=== PATIENT | male | born 1980 | race Caucasian/White ===

== ENCOUNTER 2025-02-03 09:04 | Inpatient (IN) | payer MEDICAID, OTHER, SELFPAY ==
[2025-02-03] VITALS (7 sets, daily range): BP systolic 124–156; BP diastolic 80–97; PULSE 76–86; RESP 15–18; TEMP 36.4–37.3; O2SAT 94–100; BMI 36.3; BMI 35.7
--- NOTE | ~2025-02-03 | CT_ITS ---
CLINICAL HISTORY: suprapubic pain CT abdomen and pelvis with IV contrast Comparison: None Findings: Lung bases show no active disease. No dependent layering pleural effusions. The heart is not enlarged. Coronary artery calcifications: None. Hepatic steatosis. Mild hepatomegaly. No focal hepatic lesions. Patent hepatic and portal veins. Physiologic distention of the gallbladder with no radiopaque gallstones. Homogeneous enhancement of the pancreas. No splenomegaly. Normal adrenal glands. Symmetrical renal excretion with no segmental or diffuse renal parenchymal disease or evidence of obstructive uropathy/hydroureteronephrosis. Renal cortical cysts on the left. Normal caliber abdominal aorta. Bowel demonstrates a nonobstructive pattern. No free air. Normal appendix and terminal ileum. Diverticular disease is seen in the sigmoid colon. Poorly defined sigmoid mass is noted on the right measuring 4 x 4.2 cm may represent a intramural hematoma or intramural abscess from possible acute diverticulitis. There is surrounding probably inflammatory changes/phlegmon extending up to the aortic bifurcation.Probable reactive adjacent mesenteric lymph nodes.Normal distention of the urinary bladder. No prostatomegaly. No vertebral body compression fractures or spondylolisthesis. No bony destructive lesions. Impression: 1. Intramural mass measuring 4.2 x 4.0 cm proximal sigmoid colon this may represent an inflammatory process from acute diverticulitis and may represent a intramural abscess rather than hematoma. Surrounding fat stranding may be inflammatory and represent phlegmon reaching up to the aortic bifurcation. 3.6 cm probable extraluminal fluid collection just inferior to the proximal sigmoid colon may represent a extraluminal component but appears contiguous with the intramural lesion. CT with oral Gastrografin study may be of further diagnostic value. No free air. 2. Hepatic steatosis. Renal cortical cysts. Normal distention of the urinary bladder. This document has been electronically signed by: Jean Paul Krause MD on 02/03/2025 12:34:16
--- NOTE | ~2025-02-03 | CT_ITS ---
EXAMINATION: CT ABDOMEN PELVIS WITH IV CONTRAST HISTORY: reassess sigmoid diverticular intramural phlegmon COMPARISON: Comparison is made with the prior examination dated 02/03/2025. TECHNIQUE: CT scan of the abdomen and pelvis was performed following administration of 85 mL Omnipaque 350 using standard departmental protocol. Coronal and sagittal reformatted images were generated and reviewed. Oral contrast material was not administered at the request of the referring physician. This CT exam was performed with one or more of the following dose reduction techniques: automated exposure control, adjustment of the mA and/or kV according to patient size, use of iterative reconstruction technique. DLP: 711 mGy-cm FINDINGS: LOWER CHEST: The visualized lung bases are clear. There is no pleural effusion. CARDIOVASCULATURE: The heart is normal in size. There is no pericardial effusion. LIVER: The liver is normal in size and contour, and is again seen to demonstrate diffusely decreased attenuation, consistent with steatosis. There is focal fatty sparing in the subcapsular region and adjacent to the gallbladder. No liver mass is identified. The hepatic and portal veins are patent. GALLBLADDER / BILE DUCTS: The gallbladder is unremarkable. There is no intra or extrahepatic biliary ductal dilatation. SPLEEN: The spleen is normal in size. No focal splenic lesion is identified. PANCREAS: The pancreas is unremarkable in appearance. ADRENAL GLANDS: Within normal limits. KIDNEYS/RETROPERITONEUM: No renal calculi are identified. There is no hydronephrosis. Again seen is a 3.4 cm cyst at the upper pole of the left kidney. A subcentimeter hypodensity at the lower pole of the right kidney may also represent a cyst but is too small to accurately characterize. LYMPH NODES: Again seen are multiple subcentimeter lymph nodes adjacent to the aortic bifurcation. VASCULATURE: The abdominal aorta is normal in caliber. MESENTERY/PERITONEUM: No free fluid. There is no free intraperitoneal gas. STOMACH: The stomach is collapsed, limiting evaluation. SMALL BOWEL: The small bowel is normal in caliber. COLON: Again seen is diverticulosis of the sigmoid colon. There is moderate wall thickening of the sigmoid colon. The previously seen inflammatory mass immediately adjacent to the sigmoid colon measures 4.8 x 3.9 x 6.3 cm (previously 3.9 x 3.6 x 6.6 cm). A well-defined enhancing rim is not identified. APPENDIX: Normal. URINARY BLADDER/PELVIC ORGANS: The urinary bladder is collapsed, limiting evaluation. The prostate is normal in size. BONES / SOFT TISSUES: No suspicious bony or soft tissue abnormalities. CT/CT abdomen pelvis w IV con IMPRESSION: 1. Again seen are findings suggestive of diverticulitis of the sigmoid colon. The previously described pericolonic inflammatory mass is slightly larger in size, and likely represents a developing abscess. 2. Hepatic steatosis. Electronically signed by: Henok Corcoran MD 02/05/2025 12:18 PM EDT
--- NOTE | 2025-02-03 09:17 | ED_ITS ---
HPI - General Adult General Chief complaint: Abdominal Pain Stated complaint: lower abd pain Time Seen by Provider: 02/03/25 09:17 Source: patient, RN notes reviewed and old records reviewed Mode of arrival: ambulatory Limitations: no limitations History of Present Illness ED Provider: Anali RESENDEZ narrative: Patient is a 44-year-old male presenting to the emergency department with complaint of suprapubic pain for the past 9 days. Reports symptoms began as generalized lower abdominal pain at onset which then became focused to suprapubic area. Reports associated night sweats, weight loss. Has been taking ibuprofen as well as [id number] azo with little change in symptoms. Denies any hematuria, back or flank pain. Denies nausea or vomiting. Denies any new sexual partners. Denies any abnormal penile discharge, rashes, scrotal pain or swelling. Denies constipation or diarrhea. MD complaint: Suprapubic pain Onset (ago): day(s) Related Data Allergies Allergy/AdvReac Type Severity Reaction Status Date / Time No Known Allergies Allergy Verified 02/03/25 09:17 Review of Systems 2 Review of Systems: As per HPI Yes all other systems are reviewed and are negative Constitutional: Constitutional: Reports as per HPI [facility] Social History Social History Smoked in Last 30 Days: No Use of substances other than those prescribed or required for medical reasons: Yes Substance Use Type: Marijuana Substance Use Frequency: Occasionally Advance Directives: No Advance Directives Information Provided: No Do you have a plan to hurt others: No Plan Physical Exam ED Vital Signs: Vital Signs - 24 hr 02/03/25 09:13 Temperature 99.2 F Pulse Rate 86 Respiratory Rate 18 Blood Pressure 124/97 H Pulse Oximetry 96 Oxygen Delivery Method Room Air BMI result Body Mass Index 36.3 Vital signs have been reviewed and appear to be correct. Blood pressure normal. Heart rate normal. Respiratory rate normal. Temperature normal. Oxygen saturation normal. Const General: cooperative, no acute distress and other (small beads to sweat to forehead) Orientation/consciousness: oriented to person, oriented to place, oriented to time and patient oriented x3 Limitations: no limitations HENMT Head: Yes normocephalic and Yes atraumatic Ears: external ears normal General nose exam: Normal external nose present Face and sinus: Yes face symmetric Mouth: oropharynx normal and moist mucous membranes Throat: Yes uvula midline Eyes Pupils: Equal, round and reactive pupils present Neck Neck: Yes normal visual inspection and Yes supple Resp Effort & Inspection: normal respiratory effort and able to speak in complete sentences Auscultation: clear to auscultation bilaterally Cardio Rate: regular rate Rhythm: regular rhythm Heart sounds: S1 normal heart sound present and S2 normal heart sound present GI Palpation (GI): Soft to palpation and Tenderness to palpation present (GI) suprapubicly Auscultation: normoactive bowel sounds General: Yes no CVA tenderness Back/Spine/Pelvis Back: no CVA tenderness Skin General skin exam: elasticity normal and turgor normal Neuro General: oriented to person, oriented to place, oriented to time, patient oriented x3, moves all extremities, no focal motor deficits and CN's II-XI intact bilaterally Cranial nerves: Yes Equal, round and reactive pupils present Cognition (Neuro): normal cognition Extrem General: Yes full ROM, Yes no pedal edema and Yes no calf tenderness Psych Mental Status: mental status grossly normal Affect: normal affect Thought process: Normal thought process present Medications Administered Discontinued Medications Generic Name Dose Route Start Last Admin Trade Name Freq PRN Reason Stop Dose Admin Iohexol 100 ml 02/03/25 11:21 02/03/25 11:21 Iohexol 350 Mg/Ml 100 Ml Infus..Btl IV 02/03/25 11:22 100 ml ONCE ONE Administration Medical Decision Making Medical Decision Making [facility] Narrative: Patient is a 44-year-old male presenting to the emergency department with complaint of suprapubic pain for the past 9 days. On exam patient is awake, A+Ox3, VS WNL, afebrile, normal neurological exam without focal deficits, physical exam findings as above. Given reported symptoms and physical exam findings, initial differential includes but is not limited to UTI/pyelonephritis, STI, ureteral calculi, obstructing calculi, hydronephrosis. Given report of fevers at night, weight loss, some concern for malignancy/mass. Labs notable for leukocytosis, mildly elevated ALT. Urinalysis is without evidence of infection. CT notable for 4.2 x 4 cm intramural mass of proximal sigmoid colon likely representing an inflammatory process from acute diverticulitis and may represent intramural abscess. My interpretation is in agreement with the radiologist's interpretation. Case discussed with Dr. Pineda who presented to the ED for evaluation of patient and will admit him to his service. IV antibiotics ordered. Differential Diagnosis Differential Diagnoses: The differential diagnosis associated with the presentation includes As per [facility] Admission/Observation Consideration of admission/observation: Escalation of care including admission/observation considered Consult Healthcare Provider Management of the patient was discussed with: Data Operations Manager (Dr. Pineda) Lab Data [facility] Lab Attestation statement: I reviewed the patient's lab results. As per [facility] 02/03/25 09:45 02/03/25 09:45 Labs: Lab Results 02/03/25 02/03/25 Range/Units 09:45 10:34 WBC 15.3 H (4.8-10.8) X10*3/uL RBC 4.92 (4.60-5.80) X10*6/uL Hgb 15.5 (14.0-18.0) g/dl Hct 45.2 (42.0-52.0) % MCV 91.9 (80.0-98.0) fL MCH 31.5 (27.0-33.0) pg MCHC 34.3 (31.0-36.0) g/dl RDW 12.3 (11.0-16.0) % Plt Count 369 (160-400) X10*3/uL MPV 9.8 (9.4-12.4) fL Immature Gran % (Auto) 1.0 H (0.0-0.4) % Neut % (Auto) 70.5 (45-73) % Lymph % (Auto) 16.8 L (20-40) % Hughes % (Auto) 8.9 (2-11) % Eos % (Auto) 1.6 (0-4) % Baso % (Auto) 1.2 (0-2) % Lymph # (Auto) 2.6 (1.2-4.9) X10*3/uL [place] # (Auto) 1.4 H (0.1-1.2) X10*3/uL Eos # (Auto) 0.2 (0.0-0.4) X10*3/uL Baso # (Auto) 0.2 (0.0-0.2) X10*3/uL Abs Immat Gran (auto) 0.15 H (0.00-0.03) X10*3/uL Absolute Neuts (auto) 10.8 H (2.0-8.3) x10*3/uL Absolute Nucleated RBC 0.000 (0.0-0.012) X10*3/uL Nucleated RBC % (auto) 0.0 (0.0-0.2) /100WBC Smear Tech's Comments VERIFIED Sodium 140 (135-145) mmol/L Potassium 4.3 (3.3-5.1) mmol/L Chloride 102 (96-108) mmol/L Carbon Dioxide 29 (22-29) mmol/L Anion Gap 13 (12-20) BUN 8 L (9-16) mg/dL Creatinine 0.86 (0.5-1.4) mg/dL Estim Creat Clear Calc 144.6 Estimated GFR > 60 Random Glucose 92 (60-115) mg/dL Lactic Acid 1.0 (0.5-2.0) mmol/L Calcium 9.6 (8.4-10.2) mg/dL Total Bilirubin 0.4 (0.0-1.0) mg/dL AST 30 (5-37) U/L ALT 64 H (0-40) U/L Alkaline Phosphatase 83 (39-117) U/L Total Protein 8.4 H (6.5-8.0) g/dL Albumin 4.8 (3.5-5.0) g/dL Urine Color Yellow Urine Appearance Clear Urine pH 5.5 (5.0-9.0) Ur Specific [place] 1.015 (1.005-1.025) Urine Protein Negative (Neg-Trace) mg/dL Urine Glucose (UA) Negative (Negative) mg/dL Urine Ketones Negative (Negative) mg/dL Urine Blood Negative (Negative) Urine Nitrite Negative (Negative) Ur Leukocyte Esterase Negative (Negative) Chlam trachomat DNA PCR NOT DETECTED (Not Detect.) N.gonorrhoeae DNA (PCR) NOT DETECTED (Not Detect.) Independent Interpretation I performed an independent interpretation of an: CT Scan Interpretation: CT notable for 4.2 x 4 cm intramural mass of proximal sigmoid colon likely representing an inflammatory process from acute diverticulitis and may represent intramural abscess. Radiology Impression Discussion of test interpretation with radiology: I have reviewed the radiologist's reading. Radiologist Impression: Impression: 1. Intramural mass measuring 4.2 x 4.0 cm proximal sigmoid colon this may represent an inflammatory process from acute diverticulitis and may represent a intramural abscess rather than hematoma. Surrounding fat stranding may be inflammatory and represent phlegmon reaching up to the aortic bifurcation. 3.6 cm probable extraluminal fluid collection just inferior to the proximal sigmoid colon may represent a extraluminal component but appears contiguous with the intramural lesion. CT with oral Gastrografin study may be of further diagnostic value. No free air. 2. Hepatic steatosis. Renal cortical cysts. Normal distention of the urinary bladder. External Record Review External record reviewed: Inpatient record, Office record and Outpatient record Prescription Management I considered prescription management with: Antibiotic Critical Care Time Critical Care Time Critical Care Time: Yes Total Critical Care Time: 33 Attestation: I have personally provided critical care time exclusive of time spent on separately billable procedures. Time includes review of lab data, radiology results, discussion with consultants, and monitoring for potential decompensation. Intervention performed as documented. Discharge Plan Discharge Patient Disposition: Admitted As Inpatient Print Language: [place]
[2025-02-03 09:55] LABS: Basophils Absolute Auto 0.2 X10*3/uL (0.0-0.2); Basophils Percent Auto 1.2 % (0-2); Eosinophils Absolute Auto 0.2 X10*3/uL (0.0-0.4); Eosinophils Percent Auto 1.6 % (0-4); Hematocrit 45.2 % (42.0-52.0); Hemoglobin 15.5 g/dl (14.0-18.0); Imm Gran Abs Auto 0.15 X10*3/uL (0.00-0.03); Lymphocytes Absolute Auto 2.6 X10*3/uL (1.2-4.9); Lymphocytes Percent Auto 16.8 % (20-40); MANUAL DIFF FLAG SCAN; Mean Corpuscular HGB Conc 34.3 g/dl (31.0-36.0); Mean Corpuscular Hemoglobin 31.5 pg (27.0-33.0); Mean Corpuscular Volume 91.9 fL (80.0-98.0); Mean Platelet Volume 9.8 fL (9.4-12.4); Monocytes Absolute Auto 1.4 X10*3/uL (0.1-1.2); Monocytes Percent Auto 8.9 % (2-11); Neutrophils Absolute Auto 10.8 x10*3/uL (2.0-8.3); Neutrophils Percent Auto 70.5 % (45-73); Platelet Count 369 X10*3/uL (160-400); Red Blood Count 4.92 X10*6/uL (4.60-5.80); Red Cell Distribution Width 12.3 % (11.0-16.0); SCAN SMEAR FLAG 1; White Blood Count 15.3 X10*3/uL (4.8-10.8)
[2025-02-03 10:15] LABS: SLIDE REVIEW VERIFIED
[2025-02-03 10:16] LABS: Alanine Aminotransferase 64 U/L (0-40); Albumin Level 4.8 g/dL (3.5-5.0); Alkaline Phosphatase 83 U/L (39-117); Anion Gap 13 (12-20); Aspartate Amino Transferase 30 U/L (5-37); Bilirubin Total 0.4 mg/dL (0.0-1.0); Blood Urea Nitrogen 8 mg/dL (9-16); Calcium 9.6 mg/dL (8.4-10.2); Carbon Dioxide 29 mmol/L (22-29); Chloride 102 mmol/L (96-108); Creatinine Clr Calc Pharmacy 144.6; Estimated Glomerular Filt Rate > 60; Glucose Random 92 mg/dL (60-115); Potassium 4.3 mmol/L (3.3-5.1); Sodium 140 mmol/L (135-145); Total Protein 8.4 g/dL (6.5-8.0)
[2025-02-03 10:49] LABS: Appearance Urine Clear; Color Urine Yellow; Glucose Urine UA Negative (Negative); Leukocyte Esterase Urine Negative (Negative); Nitrite Urine Negative (Negative); PH 5.5 (5.0-9.0); Specific Gravity - Urine 1.015 (1.005-1.025); Urine Blood Negative (Negative); Urine Ketones Negative (Negative); Urine Protein Negative (Neg-Trace)
[2025-02-03] MEDS: iohexoL 350 MG/ML 100 ML INFUS..BTL IV (11:21)
[2025-02-03 12:24] LABS: CT PCR NOT DETECTED (Not Detect.); NG PCR NOT DETECTED (Not Detect.)
--- NOTE | 2025-02-03 13:31 | PM.HPGS ---
History of Present Illness History of Present Illness Date of Service: 02/05/25 Chief complaint: lower abdominal pain Narrative: Tavo Valencia is a 44 year old male here in the ER for lower abdominal pain. He says that this started about 9 days ago and this has been fairly constant. He says that is low to moderate in intensity. He says that this has not really changed much over the past 9 days. In view of the persistence of his pain, he does need to come to the emergency room today He describes maybe some mild chills but no fevers. He denies any problems urination. She denies any vomiting or nausea. He says that his bowel movements may have been inconsistent for the past 9 days. He has never had any surgeries in the past except for removal of a pilonidal cyst He says he does not see any doctors at all so he is not aware of any medical problems. He does not take any medications. Review of Systems Constitutional: Constitutional: Denies chills and Denies fever(s) Cardiovascular: Cardiovascular: Denies chest pain, Denies dyspnea and Denies dyspnea on exertion Respiratory: Respiratory: Denies cough, Denies dyspnea and Denies dyspnea on exertion Gastrointestinal: Gastrointestinal: Denies hematochezia and Denies change in bowel habits Genitourinary: Genitourinary: Denies hematuria and Denies difficulty urinating Musculoskeletal: Musculoskeletal: Denies back pain and Denies limited range of motion Neurologic: Denies focal weakness and Denies convulsions Psychiatric: Psychiatric: Denies depression and Denies mood swings PMFSH Surgical History Surgical History Previous back surgery Social History Social History Household Members: Significant Other Housing: House Do you presently have visiting nurse or other home services: No Patient Tobacco Use Status: Former Tobacco user Smoked in Last 30 Days: No e-Cigarette/Vaping Use: Former Use Use of substances other than those prescribed or required for medical reasons: Yes Substance Use Type: Marijuana Substance Use Frequency: Occasionally Currently Displaying Signs/Symptoms of Drug Intoxication Withdrawal: No Have you been hit, kicked, punched, or otherwise hurt by someone within the past year? If so, by whom?: No Do you feel safe in your current relationship?: Yes Is there a partner from a previous relationship who is making you feel unsafe now?: No Are you made to feel afraid or neglected: No Advance Directives: No Advance Directives Information Provided: No Do you have a plan to hurt others: No Plan Recently lost weight without trying: No How much weight loss: Not applicable Eating poorly because of decreased appetite: No Nutrition screen score: 0 Nutrition Risks: No Nutritional Risk service: No Meds Allergies Allergy/AdvReac Type Severity Reaction Status Date / Time No Known Allergies Allergy Verified 02/03/25 09:17 Active Medications: Current Medications Metronidazole (Flagyl) 500 mg in 100 mls @ 100 mls/hr IV ONCE ONE Stop: 02/03/25 13:54 Home Medications ?Medication ?Instructions ?Recorded ?Confirmed ?Last Taken ?Type ibuprofen 200 mg tablet 400 mg PO BID PRN Pain 02/03/25 02/03/25 Unknown History phenazopyridine 95 mg tablet 95 mg PO TID PRN Pain 02/03/25 02/03/25 02/02/25 History Physical Exam Vital Signs: Vital Signs: Last Vital Signs Temp 99.2 F 02/03/25 09:13 Pulse 86 02/03/25 09:13 Resp 18 02/03/25 09:13 BP 124/97 H 02/03/25 09:13 Pulse Ox 96 02/03/25 09:13 O2 Del Method Room Air 02/03/25 09:13 BMI result Body Mass Index 36.3 Const: General: comfortable and no acute distress Orientation/consciousness: patient oriented x3 Neck: Neck: Yes no lymphadenopathy Resp: Auscultation: clear to auscultation bilaterally Cardio: Rhythm: regular rhythm GI: Other: Some tenderness on lower abdomen with no guarding or rebound Palpation (GI): Soft to palpation, Tenderness to palpation present (GI) and no guarding Neuro: General: patient oriented x3 Results Results Labs: Short CBC 02/03/25 Range/Units 09:45 WBC 15.3 H (4.8-10.8) X10*3/uL Hgb 15.5 (14.0-18.0) g/dl Hct 45.2 (42.0-52.0) % Plt Count 369 (160-400) X10*3/uL BMP 02/03/25 09:45 Sodium 140 Potassium 4.3 Chloride 102 Carbon Dioxide 29 BUN 8 L Creatinine 0.86 Calcium 9.6 Liver Function 02/03/25 Range/Units 09:45 Total Bilirubin 0.4 (0.0-1.0) mg/dL AST 30 (5-37) U/L ALT 64 H (0-40) U/L Alkaline Phosphatase 83 (39-117) U/L Albumin 4.8 (3.5-5.0) g/dL Urine 02/03/25 Range/Units 10:34 Urine Color Yellow Urine Appearance Clear Urine pH 5.5 (5.0-9.0) Ur Specific [place] 1.015 (1.005-1.025) Urine Protein Negative (Neg-Trace) mg/dL Urine Glucose (UA) Negative (Negative) mg/dL Abdomen CT scan report/results: report reviewed and image reviewed CT scan - pelvis: report reviewed and image reviewed Additional studies: Impression: 1. Intramural mass measuring 4.2 x 4.0 cm proximal sigmoid colon this may represent an inflammatory process from acute diverticulitis and may represent a intramural abscess rather than hematoma. Surrounding fat stranding may be inflammatory and represent phlegmon reaching up to the aortic bifurcation. 3.6 cm probable extraluminal fluid collection just inferior to the proximal sigmoid colon Assessment and Plan (1) Diverticulitis of intestine with abscess: Qualifiers: Diverticulitis site: large intestine Status: Acute Plan 44-year-old male with lower abdominal, suprapubic pain for about 9 days. I have reviewed his CAT scan and this shows what appears to be intramural mass in the distal sigmoid that may represent phlegmon from diverticular disease. A tumor can not be completely ruled out at this time He will be admitted for IV antibiotics. He will be kept on clear liquids. His abdominal exam is otherwise benign Ideally, it is best to be able to do a diagnostic colonoscopy as he has never had 1 before. However, if this does not improve clinically, he may require resection including a temporary stoma. He understands the plan well. He is hemodynamically stable. . Quality Stroke Does the patient have a stroke diagnosis?: No VTE Prior VTE?: No VTE Risk Level:: Medical - moderate - high VTE Device Contraindication: N/A - Device Ordered VTE Drug Contraindication: N/A - Med Ordered Procedures Date of Service Date of Service: 02/05/25
--- NOTE | 2025-02-03 13:54 | PHA.MEDREC ---
Addendum entered by Darrel Kraft [facility] 02/03/25 15:33: MED REC CHECKED BY [facility] Original Note: Pharmacy Consult ? Medication Reconciliation Pharmacy has completed the medication reconciliation. Spoke with patient to confirm. He takes no prescription medications. He has been using ibuprofen for the past 9 days. Only has had a few doses of the AZO. He did not take any medications today.
[2025-02-03] MEDS: Morphine Sulfate 2 MG/ML CARTRIDGE IVPUSH (14:19)
[2025-02-03] MEDS: cefTRIAXone sodium 2 GM VIAL IVPUSH (14:23)
[2025-02-03] MEDS: Piperacillin Sodium/Tazobactam 3.375 GM in 0.9 % Sodium Chloride 50 ML IV ×2 (14:31→19:59)
[2025-02-03] MEDS: Lactated Ringers 1,000 ML 100 ML IVCONT ×2 (15:12→23:28)
[2025-02-03] MEDS: metroNIDAZOLE/NS 500 MG/100 ML PIGGYBACK 100 MG IV (15:15)
[2025-02-03] MEDS: HYDROmorphone HCl 0.5 MG/0.5 ML SYRINGE IVPUSH ×2 (15:45→19:59)
--- NOTE | 2025-02-03 16:28 | PM.EVENT ---
Event Note Date of Service: 02/04/25 Event Note: Seen on afternoon rounds Admits to pain but not worse Looks comfortable currently Stable vital signs Abdomen remains soft and benign Continue IV antibiotics Clear liquids only Possibly repeat CAT scan in about 48 hours resume Time Spent With Patient Time: Total time managing care of this patient today ____ minutes.
[2025-02-03] MEDS: 0.9 % Sodium Chloride Flush 3 ML SYRINGE IVFLUSH (17:00)
[2025-02-04 03:02] VITALS: BP 125/78; PULSE 77; RESP 16; TEMP 36.1; O2SAT 94
[2025-02-04] MEDS: Piperacillin Sodium/Tazobactam 3.375 GM in 0.9 % Sodium Chloride 50 ML IV ×4 (03:11→20:19)
--- NOTE | 2025-02-04 07:42 | P.PNGS_ITS ---
Subjective Subjective Date of Service: 02/04/25 <Sera Beck PA-C - Last Filed: 02/04/25 07:44> 02/04/25 <Fernando Pineda MD - Last Filed: 02/04/25 08:18> Interval history: Feels improved this morning, less abd pain. Tolerating clear liquids. Denies nausea, vomiting. Had a few loose stools overnight. <Sera Beck PA-C - Last Filed: 02/04/25 07:44> Physical Exam 2 Vital Signs: Vital Signs: Last Vital Signs Temp 97.0 F 02/04/25 03:02 Pulse 77 02/04/25 03:02 Resp 16 02/04/25 03:02 BP 125/78 02/04/25 03:02 Pulse Ox 94 02/04/25 03:02 O2 Del Method Room Air 02/04/25 03:02 BMI result Body Mass Index 35.7 <Sera Beck PA-C - Last Filed: 02/04/25 07:44> Const: General: comfortable, no acute distress and alert <Sera Beck PA-C - Last Filed: 02/04/25 07:44> Nutritional Appearance: obese <Sera Beck PA-C - Last Filed: 02/04/25 07:44> Orientation/consciousness: patient oriented x3 <Sera Beck PA-C - Last Filed: 02/04/25 07:44> Resp: Effort & Inspection: normal respiratory effort <Sera Beck PA-C - Last Filed: 02/04/25 07:44> GI: Other: corpulent abdomen LLQ with moderate pinpoint tenderness, no rebound <Sera Beck PA-C - Last Filed: 02/04/25 07:44> Palpation (GI): Soft to palpation, no guarding and not rigid <Sera Beck PA-C - Last Filed: 02/04/25 07:44> Skin: General skin exam: no rashes or lesions noted <HELEN Alexander Last Filed: 02/04/25 07:44> Neuro: General: patient oriented x3 and moves all extremities <HELEN Alexander Last Filed: 02/04/25 07:44> Objective Data Active Medications Acetaminophen (Acetaminophen 325 Mg Tablet) 650 mg PO Q6H PRN PRN Reason: Pain, Mild 1-3,fever,headache Calcium Carbonate (Calcium Carbonate 750 Mg Tab.Chew) 750 mg PO Q4H PRN PRN Reason: Heartburn Heparin Sodium (Porcine) (Heparin Sodium,Porcine 5,000 Unit/Ml Vial) 5,000 unit SUBCUT Q8H [facility] Hydromorphone HCl (Hydromorphone Hcl 0.5 Mg/0.5 Ml Syringe) 0.5 mg IVPUSH Q3H PRN; Protocol PRN Reason: Pain, Severe (Pain Scale 7-10) Last Admin: 02/03/25 19:59 Dose: 0.5 mg Documented By: SEFERINO Lactated Ringer's (Lr) 1,000 mls @ 100 mls/hr IVCONT .Q10H [facility] Last Infusion: 02/03/25 23:28 Dose: Infused Documented By: SEFERINO Piperacillin Sod/Tazobactam (Sod 3.375 gm/ Sodium Chloride) 50 mls @ 100 mls/hr IV Q6H [facility] Last Infusion: 02/04/25 03:47 Dose: Infused Documented By: SEFERINO Sodium Chloride (0.9 % Sodium Chloride Flush 3 Ml Syringe) 3 ml IVFLUSH QSHIFT [facility] Last Admin: 02/03/25 23:09 Dose: Not Given Documented By: SEFERINO Non-Admin Reason: IV Running <Sera Beck PA-C - Last Filed: 02/04/25 07:44> Labs CBC & Chem 7: 02/03/25 09:45 02/03/25 09:45 <Sera Beck PA-C - Last Filed: 02/04/25 07:44> Labs: Laboratory Results - last 24 hr 02/03/25 02/03/25 09:45 10:34 MCV 91.9 MCH 31.5 MCHC 34.3 RDW 12.3 Plt Count 369 MPV 9.8 Immature Gran % (Auto) 1.0 H Neut % (Auto) 70.5 Lymph % (Auto) 16.8 L [place] % (Auto) 8.9 Eos % (Auto) 1.6 Baso % (Auto) 1.2 Lymph # (Auto) 2.6 [place] # (Auto) 1.4 H Eos # (Auto) 0.2 Baso # (Auto) 0.2 Abs Immat Gran (auto) 0.15 H Absolute Neuts (auto) 10.8 H Absolute Nucleated RBC 0.000 Nucleated RBC % (auto) 0.0 Smear Tech's Comments VERIFIED Anion Gap 13 Estim Creat Clear Calc 144.6 Estimated GFR > 60 Random Glucose 92 Lactic Acid 1.0 Calcium 9.6 Total Bilirubin 0.4 AST 30 ALT 64 H Alkaline Phosphatase 83 Total Protein 8.4 H Albumin 4.8 Urine Color Yellow Urine Appearance Clear Urine pH 5.5 Ur Specific [place] 1.015 Urine Protein Negative Urine Glucose (UA) Negative Urine Ketones Negative Urine Blood Negative Urine Nitrite Negative Ur Leukocyte Esterase Negative Chlam trachomat DNA PCR NOT DETECTED N.gonorrhoeae DNA (PCR) NOT DETECTED <Sera Beck PA-C - Last Filed: 02/04/25 07:44> Procedures Date of Service Date of Service: 02/04/25 <Sera Beck PA-C - Last Filed: 02/04/25 07:44> 02/04/25 <Fernando Pineda MD - Last Filed: 02/04/25 08:18> Progress Note: A&P Assessment and plan (1) Diverticulitis of intestine with abscess: Status: Acute <Sera Beck PA-C - Last Filed: 02/04/25 07:44> Assessment and Plan: Feels better this morning Less pain Says he has not gotten narcotics since last night Abdomen is soft and benign Keep on clear liquids IV antibiotics May need follow up CAT scan Looks well overall Labs not back yet Seen and examined independently <Fernando Pineda MD - Last Filed: 02/04/25 08:18> Assessment and Plan: 44 year old male presenting with lower abd pain found to have intramural mass in the distal sigmoid that may represent phlegmon from diverticular disease. He feels improved this morning. VSS- afebrile. Abd exam with moderate LLQ tenderness, no peritoneal signs. AM labs pending. Cont supportive measures for now with IV abx, IVF, clear liquids. Plan repeat CT scan tomorrow to reassess. Patient comfortable with plan. Encouraged OOB/ambulation today. < Sera Beck PA-C - Last Filed: 02/04/25 07:44> Time Spent With Patient Time: Total time managing care of this patient today ____ minutes. <Sera Beck PA-C - Last Filed: 02/04/25 07:44> Quality Stroke Does the patient have a stroke diagnosis?: No <Sera Beck PA-C - Last Filed: 02/04/25 07:44> VTE Prior VTE?: No <Sera Beck PA-C - Last Filed: 02/04/25 07:44> VTE Risk Level:: Medical - moderate - high <Sera Beck PA-C - Last Filed: 02/04/25 07:44> VTE Device Contraindication: N/A - Device Ordered <Sera Beck PA-C - Last Filed: 02/04/25 07:44> VTE Drug Contraindication: N/A - Med Ordered <Sera Beck PA-C - Last Filed: 02/04/25 07:44>
[2025-02-04 07:50] VITALS: BP 144/85; PULSE 74; RESP 18; TEMP 36.2; O2SAT 93
[2025-02-04] MEDS: 0.9 % Sodium Chloride Flush 3 ML SYRINGE IVFLUSH ×2 (08:46→20:26)
[2025-02-04 09:11] LABS: Hematocrit 42.2 % (42.0-52.0); Hemoglobin 14.9 g/dl (14.0-18.0); Mean Corpuscular HGB Conc 35.3 g/dl (31.0-36.0); Mean Corpuscular Hemoglobin 32.1 pg (27.0-33.0); Mean Corpuscular Volume 90.9 fL (80.0-98.0); Mean Platelet Volume 9.9 fL (9.4-12.4); Platelet Count 366 X10*3/uL (160-400); Red Blood Count 4.64 X10*6/uL (4.60-5.80); Red Cell Distribution Width 12.3 % (11.0-16.0); White Blood Count 15.3 X10*3/uL (4.8-10.8)
[2025-02-04 09:32] LABS: Alanine Aminotransferase 48 U/L (0-40); Albumin Level 4.4 g/dL (3.5-5.0); Alkaline Phosphatase 75 U/L (39-117); Anion Gap 13 (12-20); Aspartate Amino Transferase 21 U/L (5-37); Bilirubin Total 0.7 mg/dL (0.0-1.0); Blood Urea Nitrogen 8 mg/dL (9-16); Calcium 9.3 mg/dL (8.4-10.2); Carbon Dioxide 26 mmol/L (22-29); Chloride 104 mmol/L (96-108); Creatinine Clr Calc Pharmacy 128.5; Estimated Glomerular Filt Rate > 60; Glucose Random 119 mg/dL (60-115); Potassium 3.8 mmol/L (3.3-5.1); Sodium 139 mmol/L (135-145); Total Protein 7.7 g/dL (6.5-8.0)
--- NOTE | 2025-02-04 09:51 | MHC.CM.PN ---
PATIENT LIVES IN A HOME W/ HIS MOTHER AND GIRLFRIEND. FUNCTIONALLY INDEPENDENT. DENIES USE OF DME OR SERVICES. NO INSURANCE OR PCP. 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 G PROVIDER BROCHURE GIVEN, WILL SCHEDULE APPT ONCE INSURANCE IN PLACE. NO HCP. CM PROVIDED EDUCATION AND OFFERED ASSISTANCE. PATIENT DECLINED - IS NOT SURE WHO HE WANTS TO NAME. DP: GOAL IS HOME SELF CARE. CAR IN [facility] [place] LOT FOR SELF TRANSPORT IF APPROPRIATE. CM WILL CONTINUE TO FOLLOW.
[2025-02-04] MEDS: Lactated Ringers 1,000 ML 100 ML IVCONT ×2 (10:27→20:15)
[2025-02-04] MEDS: Heparin Sodium,Porcine 5,000 UNIT/ML VIAL 5000 UNIT SUBCUT ×2 (13:57→20:21)
[2025-02-04 15:34] VITALS: BP 121/79; PULSE 79; RESP 15; TEMP 36.1; O2SAT 95
[2025-02-04 17:08] VITALS: TEMP 36.8
[2025-02-04 17:10] VITALS: BP 134/80; PULSE 76; RESP 20; O2SAT 95
[2025-02-04] MEDS: HYDROmorphone HCl 0.5 MG/0.5 ML SYRINGE IVPUSH (17:24)
--- NOTE | 2025-02-04 19:09 | PC.NURSE ---
ALEISHA Beck made aware at 17:23 pt c/o lower diffuse abd pain radiating to testicles. PRN Pain medication given with good effect. Pt reports two large loose BMs this shift. No new orders at this time.
[2025-02-04 19:22] VITALS: BP 155/92; PULSE 98; RESP 18; TEMP 36.1; O2SAT 94
[2025-02-05] MEDS: Piperacillin Sodium/Tazobactam 3.375 GM in 0.9 % Sodium Chloride 50 ML IV ×4 (02:34→21:36)
--- NOTE | 2025-02-05 02:47 | MHC.PIE ---
p; pt c/o h/a asking for ibuprofen. pt refusing tylenol, pt reports tylenol don't work for me , only motrin/ibuprofen works i; dr hancock notified. telephone order-ibuprofen 400 mg po q8 for h/a e; will cont to monitor
[2025-02-05] MEDS: Ibuprofen 400 MG TABLET PO (02:59)
[2025-02-05 03:01] VITALS: BP 127/77; PULSE 75; RESP 16; TEMP 36; O2SAT 94
[2025-02-05] MEDS: Heparin Sodium,Porcine 5,000 UNIT/ML VIAL 5000 UNIT SUBCUT (04:23)
[2025-02-05] MEDS: Lactated Ringers 1,000 ML 100 ML IVCONT ×2 (04:23→16:00)
[2025-02-05 05:51] LABS: MANUAL DIFF FLAG NO
[2025-02-05 06:18] LABS: Basophils Absolute Auto 0.1 X10*3/uL (0.0-0.2); Basophils Percent Auto 1.2 % (0-2); Eosinophils Absolute Auto 0.2 X10*3/uL (0.0-0.4); Eosinophils Percent Auto 1.9 % (0-4); Hematocrit 40.6 % (42.0-52.0); Hemoglobin 13.8 g/dl (14.0-18.0); Imm Gran Abs Auto 0.09 X10*3/uL (0.00-0.03); Imm Gran Pct Auto 0.9 % (0.0-0.4); Lymphocytes Absolute Auto 1.7 X10*3/uL (1.2-4.9); Lymphocytes Percent Auto 15.7 % (20-40); Mean Corpuscular Hemoglobin 31.5 pg (27.0-33.0); Mean Corpuscular Volume 92.7 fL (80.0-98.0); Mean Platelet Volume 10.2 fL (9.4-12.4); Monocytes Percent Auto 9.3 % (2-11); Neutrophils Absolute Auto 7.5 x10*3/uL (2.0-8.3); Platelet Count 352 X10*3/uL (160-400); Red Blood Count 4.38 X10*6/uL (4.60-5.80); Red Cell Distribution Width 12.1 % (11.0-16.0); White Blood Count 10.6 X10*3/uL (4.8-10.8)
--- NOTE | 2025-02-05 07:26 | P.PNGS_ITS ---
Subjective Subjective Date of Service: 02/05/25 <Sera Beck PA-C - Last Filed: 02/05/25 07:28> 02/05/25 <Fernando Pineda MD - Last Filed: 02/05/25 08:38> Interval history: Had episode of pain last night requiring IV dilaudid. [place] improved following large liquid BM. Denies pain this morning, reports he feels improved. <Sera Beck PA-C - Last Filed: 02/05/25 07:28> Physical Exam 2 Vital Signs: Vital Signs: Last Vital Signs Temp 96.8 F 02/05/25 03:01 Pulse 75 02/05/25 03:01 Resp 16 02/05/25 03:01 BP 127/77 02/05/25 03:01 Pulse Ox 94 02/05/25 03:01 O2 Del Method Room Air 02/05/25 03:01 BMI result Body Mass Index 35.7 <Sera Beck PA-C - Last Filed: 02/05/25 07:28> Const: General: comfortable, no acute distress and alert <Sera Beck PA-C - Last Filed: 02/05/25 07:28> Orientation/consciousness: patient oriented x3 <HELEN Alexander Last Filed: 02/05/25 07:28> Resp: Effort & Inspection: normal respiratory effort <Sera Bekc PA-C - Last Filed: 02/05/25 07:28> GI: Inspection: No distended <Sera Beck PA-C - Last Filed: 02/05/25 07:28> Palpation (GI): Soft to palpation, Tenderness to palpation present (GI) (LLQ and suprapubic, moderate) and no guarding <HELEN Alexander Last Filed: 02/05/25 07:28> Skin: General skin exam: no rashes or lesions noted <HELEN Alexander Last Filed: 02/05/25 07:28> Neuro: General: patient oriented x3 and moves all extremities <HELEN Alexander Last Filed: 02/05/25 07:28> Objective Data Active Medications Acetaminophen (Acetaminophen 325 Mg Tablet) 650 mg PO Q6H PRN PRN Reason: Pain, Mild 1-3,fever,headache Calcium Carbonate (Calcium Carbonate 750 Mg Tab.Chew) 750 mg PO Q4H PRN PRN Reason: Heartburn Heparin Sodium (Porcine) (Heparin Sodium,Porcine 5,000 Unit/Ml Vial) 5,000 unit SUBCUT Q8H [facility] Last Admin: 02/05/25 04:23 Dose: 5,000 unit Documented By: SEFERINO Hydromorphone HCl (Hydromorphone Hcl 0.5 Mg/0.5 Ml Syringe) 0.5 mg IVPUSH Q3H PRN; Protocol PRN Reason: Pain, Severe (Pain Scale 7-10) Last Admin: 02/04/25 17:24 Dose: 0.5 mg Documented By: KG Lactated Ringer's (Lr) 1,000 mls @ 100 mls/hr IVCONT .Q10H [facility] Last Admin: 02/05/25 04:23 Dose: 100 mls/hr Documented By: SEFERINO Piperacillin Sod/Tazobactam (Sod 3.375 gm/ Sodium Chloride) 50 mls @ 100 mls/hr IV Q6H [facility] Last Infusion: 02/05/25 03:30 Dose: Infused Documented By: SEFERINO Ibuprofen (Ibuprofen 400 Mg Tablet) 400 mg PO Q8H PRN PRN Reason: Headache Last Admin: 02/05/25 02:59 Dose: 400 mg Documented By: SEFERINO Sodium Chloride (0.9 % Sodium Chloride Flush 3 Ml Syringe) 3 ml IVFLUSH QSHIFT [facility] Last Admin: 02/04/25 20:26 Dose: 3 ml Documented By: SEFERINO <Sera Beck PA-C - Last Filed: 02/05/25 07:28> Labs CBC & Chem 7: 02/05/25 05:20 02/04/25 08:57 <Sera Beck PA-C - Last Filed: 02/05/25 07:28> Labs: Laboratory Results - last 24 hr 02/04/25 02/05/25 08:57 05:20 MCV 90.9 92.7 MCH 32.1 31.5 MCHC 35.3 34.0 RDW 12.3 12.1 Plt Count 366 352 MPV 9.9 10.2 Immature Gran % (Auto) 0.9 H Neut % (Auto) 71.0 Lymph % (Auto) 15.7 L [place] % (Auto) 9.3 Eos % (Auto) 1.9 Baso % (Auto) 1.2 Lymph # (Auto) 1.7 [place] # (Auto) 1.0 Eos # (Auto) 0.2 Baso # (Auto) 0.1 Abs Immat Gran (auto) 0.09 H Absolute Neuts (auto) 7.5 Absolute Nucleated RBC 0.000 0.000 Nucleated RBC % (auto) 0.0 0.0 Anion Gap 13 Estim Creat Clear Calc 128.5 Estimated GFR > 60 Random Glucose 119 H Calcium 9.3 Total Bilirubin 0.7 AST 21 ALT 48 H Alkaline Phosphatase 75 Total Protein 7.7 Albumin 4.4 <Sera Beck PA-C - Last Filed: 02/05/25 07:28> Microbiology Microbiology Results: Microbiology 02/03/25 10:34 Blood Culture - Preliminary Blood - Venous No growth after 24 hours. 02/03/25 09:45 Blood Culture - Preliminary Blood - Venous No growth after 24 hours. <Sera Beck PA-C - Last Filed: 02/05/25 07:28> Procedures Date of Service Date of Service: 02/05/25 <Sera Beck PA-C - Last Filed: 02/05/25 07:28> 02/05/25 <Fernando Pineda MD - Last Filed: 02/05/25 08:38> Progress Note: A&P Assessment and plan (1) Diverticulitis of intestine with abscess: Status: Acute <Sera Beck PA-C - Last Filed: 02/05/25 07:28> Assessment and Plan: States he feels well this morning Admits to transient episode of pain last night but took Dilaudid Tolerating clear liquids Abdomen is soft and benign Looks well overall Follow up CAT scan today Seen and examined independently <Fernando Pineda MD - Last Filed: 02/05/25 08:38> Assessment and Plan: 44 year old male presenting with lower abd pain found to have intramural mass in the distal sigmoid that may represent phlegmon from diverticular disease. Feels improved, less pain. VSS- afebrile. Abd exam unchanged with moderate LLQ tenderness, no peritoneal signs. WBC hovering at 15 yesterday. Cont supportive measures for now with IV abx, IVF, clear liquids. Plan repeat CT scan today to reassess. Patient comfortable with plan. Encouraged OOB/ambulation today. <Sera Beck PA-C - Last Filed: 02/05/25 07:28> Time Spent With Patient Time: Total time managing care of this patient today ____ minutes. <Sera Beck PA-C - Last Filed: 02/05/25 07:28> Quality Stroke Does the patient have a stroke diagnosis?: No <Sera Beck PA-C - Last Filed: 02/05/25 07:28> VTE Prior VTE?: No <Sera Beck PA-C - Last Filed: 02/05/25 07:28> VTE Risk Level:: Medical - moderate - high <Sera Beck PA-C - Last Filed: 02/05/25 07:28> VTE Device Contraindication: N/A - Device Ordered <Sera Beck PA-C - Last Filed: 02/05/25 07:28> VTE Drug Contraindication: N/A - Med Ordered <Sera Beck PA-C - Last Filed: 02/05/25 07:28>
[2025-02-05] MEDS: 0.9 % Sodium Chloride Flush 3 ML SYRINGE IVFLUSH ×2 (07:32→16:07)
[2025-02-05 07:51] VITALS: BP 129/77; PULSE 69; RESP 15; TEMP 36.4; O2SAT 96
[2025-02-05] MEDS: iohexoL 350 MG/ML 100 ML INFUS..BTL IV (11:58)
--- NOTE | 2025-02-05 14:49 | PM.EVENT ---
Event Note Date of Service: 02/06/25 Event Note: Cat scan reviewed - the abscess appears to be bigger and there is note of persistent inflammatory changes around the distal sigmoid He remains afebrile WBCs done Mild tenderness on deep palpation However in view of the CAT scan, there is concern for persistent inflammation with healing of the abscess despite overall clinical picture Also, in view of the question of intramural location of the abscess, patient at risk for perforation with IR drain I explained to him that in view of this CAT scan picture, it may be best to proceed with resection. I had a long discussion with him about the technique of this has laparoscopic sigmoid resection, anastomosis possible diversion with the ileostomy I reviewed the risks including but not limited to bleeding, infections, for line leak, injury to other organs including bowel and the urinary tract I explained to him what to expect postoperatively He understands and wants to proceed We will put him on the schedule for tomorrow for an assisted laparoscopic sigmoid resection possible loop ileostomy/end-colostomy His mother was with him with the discussion at the bedside Time Spent With Patient Time: Total time managing care of this patient today ____ minutes.
[2025-02-05 15:04] VITALS: BP 130/81; PULSE 78; RESP 16; TEMP 36.3; O2SAT 97
[2025-02-05] MEDS: HYDROmorphone HCl 0.5 MG/0.5 ML SYRINGE IVPUSH (15:56)
[2025-02-05] MEDS: oxyCODONE HCl Immed Release 5 MG TABLET PO (17:24)
[2025-02-05 19:27] VITALS: BP 136/86; PULSE 88; RESP 18; TEMP 36.9; O2SAT 95
[2025-02-06] MEDS: Lactated Ringers 1,000 ML 100 ML IVCONT ×2 (01:40→11:38)
[2025-02-06] MEDS: Piperacillin Sodium/Tazobactam 3.375 GM in 0.9 % Sodium Chloride 50 ML IV ×4 (01:45→20:02)
[2025-02-06] MEDS: oxyCODONE HCl Immed Release 5 MG TABLET PO ×2 (02:20→08:28)
[2025-02-06 03:46] VITALS: BP 128/73; PULSE 73; RESP 18; TEMP 36.6; O2SAT 94
[2025-02-06 07:10] VITALS: BP 115/69; PULSE 69; RESP 18; TEMP 36.4; O2SAT 96
[2025-02-06] MEDS: 0.9 % Sodium Chloride Flush 3 ML SYRINGE IVFLUSH ×2 (08:29→14:44)
--- NOTE | 2025-02-06 09:18 | MHC.CM.PN ---
Addendum entered by Lucille Leon RN 02/06/25 13:46: No active PCP. Addendum entered by Lucille Leon RN 02/06/25 10:31: Per Financial - patient will be active with [facility] on 02/08. Original Note: Per EMR, patient not medically cleared, awaiting surgery, possible ostomy. 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 Message to financial to check status - if surgery results in ostomy will need supplies and VNA. CM will continue to follow.
[2025-02-06] MEDS: HYDROmorphone HCl 0.5 MG/0.5 ML SYRINGE IVPUSH (09:26)
--- NOTE | 2025-02-06 11:09 | HO.OSTOMY ---
Addendum entered by Enma Steel RN 02/07/25 12:09: 02/07/25 @ 1200 Patient off unit in surgery today secondary to delay from yesterday. Patient does not need teaching at this time will defer to future date and time. Of note this tag writer is off tomorrow 02/08/25 therefore outpt General Surgery Ostomy nurse will provide teaching to patient in case he discharges over the weekend. This tag writer will follow up for continued teaching Tuesday02/11/25 should patient remain inpatient. Original Note: Ostomy Consult: Site [place] Patient seen on S3 for brief pre-operative ostomy teaching and stoma site selection/marking. ?The patient was instructed in very basic GI anatomy and stoma creation, and teaching to be available after surgery should a stoma be created. ?Throughout the visit the patient has several questions related to the ostomy and future care of the ostomy. ?Instruction was given on the purpose of pre-operative stoma site selection and marking: ?the importance of identifying a location within sight, avoiding creases on a relatively flat area of the abdomen, and siting within the large muscle of the abdomen for support. ?He agreed with the procedure. The patient's abdomen was visualized and palpated in the sitting, standing, bending, and lying positions. ?The patient is noted to have a suspected Diastasis Reci. The patients abdominal girth is large and round and made for site marking difficulties. The margins of the rectus abdominis muscles were identified, and sites were marked in the RUQ and LUQ within the margins. ?The patients pant location was taken into consideration when marking. ?The sites were cleansed with alcohol prep pads before marking, marked with sterile surgical marker, and covered with tegaderms. ? There is some room to move the sites laterally and still within the rectus abdomins muscles marked with pen accordingly. Please re-consult after surgery for timely teaching. ?Thank you.
[2025-02-06 12:27] VITALS: BP 132/79; PULSE 74; RESP 17; TEMP 37; O2SAT 98
--- NOTE | 2025-02-06 12:38 | P.CONAN_ITS ---
[facility] Active Problems Active Problems: All Active Problems Diverticulitis of intestine with abscess (Acute) Past Medical History Functional capacity: independent ambulation Family History Family history of problems with anesthesia: No Surgical History Surgical History Previous back surgery History of Problems with Anesthesia: Yes Social History Social History Household Members: Significant Other Housing: House Do you presently have visiting nurse or other home services: No Patient Tobacco Use Status: Former Tobacco user Smoked in Last 30 Days: No e-Cigarette/Vaping Use: Former Use Use of substances other than those prescribed or required for medical reasons: Yes Substance Use Type: Marijuana Substance Use Type Other:: last used 02/02 Substance Use Frequency: Occasionally Currently Displaying Signs/Symptoms of Drug Intoxication Withdrawal: No Have you been hit, kicked, punched, or otherwise hurt by someone within the past year? If so, by whom?: No Do you feel safe in your current relationship?: Yes Is there a partner from a previous relationship who is making you feel unsafe now?: No Are you made to feel afraid or neglected: No Are you DNR?: No Advance Directives: No Advance Directives Information Provided: No Do you have a plan to hurt others: No Plan Recently lost weight without trying: No How much weight loss: Not applicable Eating poorly because of decreased appetite: No Nutrition screen score: 0 Nutrition Risks: No Nutritional Risk Poor oral hygiene: No service: No Meds Allergies Allergy/AdvReac Type Severity Reaction Status Date / Time No Known Allergies Allergy Verified 02/03/25 09:17 Active Medications: Current Medications Acetaminophen (Acetaminophen 325 Mg Tablet) 650 mg PO Q6H PRN PRN Reason: Pain, Mild 1-3,fever,headache Calcium Carbonate (Calcium Carbonate 750 Mg Tab.Chew) 750 mg PO Q4H PRN PRN Reason: Heartburn Heparin Sodium (Porcine) (Heparin Sodium,Porcine 5,000 Unit/Ml Vial) 5,000 unit SUBCUT Q8H [facility] On Hold: 02/05/25 13:27 Last Admin: 02/05/25 04:23 Dose: 5,000 unit Hydromorphone HCl (Hydromorphone Hcl 0.5 Mg/0.5 Ml Syringe) 0.5 mg IVPUSH Q3H PRN; Protocol PRN Reason: Pain, Severe (Pain Scale 7-10) Last Admin: 02/06/25 09:26 Dose: 0.5 mg Lactated Ringer's (Lr) 1,000 mls @ 100 mls/hr IVCONT .Q10H [facility] Last Infusion: 02/06/25 12:16 Dose: 0 mls/hr Piperacillin Sod/Tazobactam (Sod 3.375 gm/ Sodium Chloride) 50 mls @ 100 mls/hr IV Q6H [facility] Last Infusion: 02/06/25 09:25 Dose: Infused Ibuprofen (Ibuprofen 400 Mg Tablet) 400 mg PO Q8H PRN PRN Reason: Headache Last Admin: 02/05/25 02:59 Dose: 400 mg Oxycodone HCl (Oxycodone Hcl Immed Release 5 Mg Tablet) 5 mg PO Q4H PRN PRN Reason: Pain, Moderate(Pain Scale 4-6) Last Admin: 02/06/25 08:28 Dose: 5 mg Sodium Chloride (0.9 % Sodium Chloride Flush 3 Ml Syringe) [facility] Last Admin: 02/06/25 08:29 Dose: 3 ml Home Medications ?Medication ?Instructions ?Recorded ?Confirmed ?Last Taken ?Type ibuprofen 200 mg tablet 400 mg PO BID PRN Pain 02/0302/03/25 Unknown History phenazopyridine 95 mg tablet 95 mg PO TID PRN Pain 02/03/25 02/02/25 History Exam Exam Date and Time: 02/06/25 Height,Weight and Vital Signs: Height 5 ft 11 in Weight 116 kg Last Vital Signs Temp 98.6 F 02/06/25 12:27 Pulse 74 02/06/25 12:27 Resp 17 02/06/25 12:27 BP 132/79 02/06/25 12:27 Pulse Ox 98 02/06/25 12:27 O2 Del Method Room Air 02/06/25 12:27 Pertinent Lab Results Pertinent Lab Results: Laboratory Tests 02/03/25 02/03/25 02/04/25 09:45 10:34 08:57 WBC 15.3 H 15.3 H RBC 4.92 4.64 Hgb 15.5 14.9 Hct 45.2 42.2 MCV 91.9 90.9 MCH 31.5 32.1 MCHC 34.3 35.3 RDW 12.3 12.3 Plt Count 369 366 MPV 9.8 9.9 Immature Gran % (Auto) 1.0 H Neut % (Auto) 70.5 Lymph % (Auto) 16.8 L [place] % (Auto) 8.9 Eos % (Auto) 1.6 Baso % (Auto) 1.2 Lymph # (Auto) 2.6 [place] # (Auto) 1.4 H Eos # (Auto) 0.2 Baso # (Auto) 0.2 Abs Immat Gran (auto) 0.15 H Absolute Neuts (auto) 10.8 H Absolute Nucleated RBC 0.000 0.000 Nucleated RBC % (auto) 0.0 0.0 Smear Tech's Comments VERIFIED Sodium 140 139 Potassium 4.3 3.8 Chloride 102 104 Carbon Dioxide 29 26 Anion Gap 13 13 BUN 8 L 8 L Creatinine 0.86 0.96 Estim Creat Clear Calc 144.6 128.5 Estimated GFR > 60 > 60 Random Glucose 92 119 H Lactic Acid 1.0 Calcium 9.6 9.3 Total Bilirubin 0.4 0.7 AST 30 21 ALT 64 H 48 H Alkaline Phosphatase 83 75 Total Protein 8.4 H 7.7 Albumin 4.8 4.4 Urine Color Yellow Urine Appearance Clear Urine pH 5.5 Ur Specific [place] 1.015 Urine Protein Negative Urine Glucose (UA) Negative Urine Ketones Negative Urine Blood Negative Urine Nitrite Negative Ur Leukocyte Esterase Negative Chlam trachomat DNA PCR NOT DETECTED N.gonorrhoeae DNA (PCR) NOT DETECTED Blood Type Antibody Screen 02/05/25 02/06/25 05:20 07:16 WBC 10.6 RBC 4.38 L Hgb 13.8 L Hct 40.6 L MCV 92.7 MCH 31.5 MCHC 34.0 RDW 12.1 Plt Count 352 MPV 10.2 Immature Gran % (Auto) 0.9 H Neut % (Auto) 71.0 Lymph % (Auto) 15.7 L [place] % (Auto) 9.3 Eos % (Auto) 1.9 Baso % (Auto) 1.2 Lymph # (Auto) 1.7 [place] # (Auto) 1.0 Eos # (Auto) 0.2 Baso # (Auto) 0.1 Abs Immat Gran (auto) 0.09 H Absolute Neuts (auto) 7.5 Absolute Nucleated RBC 0.000 Nucleated RBC % (auto) 0.0 Smear Tech's Comments Sodium Potassium Chloride Carbon Dioxide Anion Gap BUN Creatinine Estim Creat Clear Calc Estimated GFR Random Glucose Lactic Acid Calcium Total Bilirubin AST ALT Alkaline Phosphatase Total Protein Albumin Urine Color Urine Appearance Urine pH Ur Specific [place] Urine Protein Urine Glucose (UA) Urine Ketones Urine Blood Urine Nitrite Ur Leukocyte Esterase Chlam trachomat DNA PCR N.gonorrhoeae DNA (PCR) Blood Type B Negative Antibody Screen NEGATIVE Airway Neck ROM: Full Loose/Missing/Broken Teeth: No Heart: rrr Lungs: cta Other: oriented, no cognitive deficits Assessment and Plan Assessment Anesthesia Assessment: Anesthesia Plan Discussed, Smoking Cess. Discussed and Chart Reviewed Final Anesthetic Review Family History of Problems with Anesthesia: No History of Problems with Anesthesia: Yes NPO: Yes ASA Class: II Final Preanesthetic Review: No Changes in Pt Med Stat, Meds/Allgs Chart Reviewed, Consent Obtained/Reviewed and Anes Risks/Benef Reviewed Patient Risk: Intermediate Procedure Risk: Intermediate Anesthetic Plan Anesthetic Plan: GA and Regional Block Disposition: Standard PACU
--- NOTE | 2025-02-06 12:56 | PM.EVENT ---
Event Note Date of Service: 02/07/25 Event Note: He says he is ?okay? Does admit to periodic low-grade discomfort and pain Abdomen remains soft and benign I have reviewed his CAT scan with the radiologist - abscess appears bigger, inflammatory changes persist He understands the technique of hand assisted laparoscopic sigmoid resection possible open possible stoma He is aware of the risks, benefits, and alternatives Time Spent With Patient Time: Total time managing care of this patient today ____ minutes.
--- NOTE | 2025-02-06 13:45 | PC.NURSE ---
Late entry: Patient's surgery has been cancelled and rescheduled to tomorrow 02/07 due to OR/anesthesia scheduling. Dr. Pineda at the bedside with Margarita De La Fuente RN to explain plan to patient. Patient agreeable to plan. Margarita De La Fuente spoke to floor RN with further instructions for patient to remain on liquid diet for the remainder of the day/evening and then be NPO after midnight.
[2025-02-06 16:00] VITALS: BP 128/81; PULSE 67; RESP 16; TEMP 36.8; O2SAT 96
--- NOTE | 2025-02-06 16:09 | P.EN_ITS ---
Event Note Date of Service: 02/06/25 Event Note: He was waiting in the preop area earlier for scheduled 130 start However, there have been delays in the OR and they could not guarantee the case to be started by 330 cm After discussions with the anesthesiologist and director selection and administration, we have decided to postpone the case to 07:30 tomorrow for a guaranteed start time We will reschedule another case originally for tomorrow morning to next week I explained the above to the patient He is comfortable with this Abdomen remained soft and benign He looks well overall Time Spent With Patient Time: Total time managing care of this patient today ____ minutes.
--- NOTE | 2025-02-06 17:37 | PC.NURSE ---
P: Alteration in GI Function I: See nursing documentation and MD orders E: Patient complaint of abdominal pain per pain scale. PRN pain medication given with positive affect. Patient taken to OR for procedure; patient returned, procedure not done. Patient given clear liquid diet, to be NPO after midnight. Patient to go for procedure in the morning.
[2025-02-06 19:55] VITALS: BP 135/69; PULSE 76; RESP 18; TEMP 36.4; O2SAT 95
[2025-02-07] VITALS (18 sets, daily range): BP systolic 105–162; BP diastolic 62–99; PULSE 64–88; RESP 8–20; TEMP 36.1–37.2; O2SAT 94–97
[2025-02-07] MEDS: Lactated Ringers 1,000 ML 100 ML IVCONT ×3 (00:51→23:04)
[2025-02-07] MEDS: Piperacillin Sodium/Tazobactam 3.375 GM in 0.9 % Sodium Chloride 50 ML IV ×4 (02:47→20:32)
--- NOTE | 2025-02-07 07:09 | P.PNGS_ITS ---
Subjective Subjective Date of Service: 02/07/25 Interval history: Procedure was canceled yesterday afternoon in view of delays in the OR Denies any new complaints Says he as well Admits to some discomfort in the lower abdomen Physical Exam 2 Vital Signs: Vital Signs: Last Vital Signs Temp 97.8 F 02/07/25 06:46 Pulse 64 02/07/25 06:46 Resp 17 02/07/25 06:46 BP 115/80 02/07/25 06:46 Pulse Ox 97 02/07/25 06:46 O2 Del Method Room Air 02/07/25 06:46 BMI result Body Mass Index 35.7 Const: General: comfortable and no acute distress Resp: Effort & Inspection: normal respiratory effort Cardio: Rate: regular rate GI: Palpation (GI): Soft to palpation, not firm and no guarding Objective Data Active Medications Acetaminophen (Acetaminophen 325 Mg Tablet) 650 mg PO Q6H PRN PRN Reason: Pain, Mild 1-3,fever,headache Calcium Carbonate (Calcium Carbonate 750 Mg Tab.Chew) 750 mg PO Q4H PRN PRN Reason: Heartburn Heparin Sodium (Porcine) (Heparin Sodium,Porcine 5,000 Unit/Ml Vial) 5,000 unit SUBCUT Q8H [facility] On Hold: 02/05/25 13:27 Last Admin: 02/05/25 04:23 Dose: 5,000 unit Documented By: SEFERINO Hydromorphone HCl (Hydromorphone Hcl 0.5 Mg/0.5 Ml Syringe) 0.5 mg IVPUSH Q3H PRN; Protocol PRN Reason: Pain, Severe (Pain Scale 7-10) Last Admin: 02/06/25 09:26 Dose: 0.5 mg Documented By: JANES Lactated Ringer's (Lr) 1,000 mls @ 100 mls/hr IVCONT .Q10H [facility] Last Infusion: 02/07/25 03:20 Dose: 100 mls/hr Documented By: FANNIE Piperacillin Sod/Tazobactam (Sod 3.375 gm/ Sodium Chloride) 50 mls @ 100 mls/hr IV Q6H [facility] Last Infusion: 02/07/25 03:21 Dose: Infused Documented By: FANNIE Ibuprofen (Ibuprofen 400 Mg Tablet) 400 mg PO Q8H PRN PRN Reason: Headache Last Admin: 02/05/25 02:59 Dose: 400 mg Documented By: SEFERINO Oxycodone HCl (Oxycodone Hcl Immed Release 5 Mg Tablet) 5 mg PO Q4H PRN PRN Reason: Pain, Moderate(Pain Scale 4-6) Last Admin: 02/06/25 08:28 Dose: 5 mg Documented By: JANES Sodium Chloride (0.9 % Sodium Chloride Flush 3 Ml Syringe) 3 ml IVFLUSH QSHIFT [facility] Last Admin: 02/07/25 00:49 Dose: Not Given Documented By: FANNIE Non-Admin Reason: IV Running Labs 02/05/25 05:20 02/04/25 08:57 Labs: Laboratory Results - last 24 hr 02/06/25 07:16 Blood Type B Negative Antibody Screen NEGATIVE Procedures Date of Service Date of Service: 02/07/25 Progress Note: A&P Assessment and plan (1) Diverticulitis of intestine with abscess: Status: Acute Assessment and Plan: With large intramural abscess sigmoid, not resolving Persistent inflammatory changes on follow up CAT scan Clinically doing well otherwise Planned for sigmoid resection today, hand assisted laparoscopic with stoma Procedure reviewed with the patient Understands the technique of the planned procedure as well as the risks, benefits, and alternatives Time Spent With Patient Time: Total time managing care of this patient today ____ minutes. Quality Stroke Does the patient have a stroke diagnosis?: No VTE Prior VTE?: No VTE Risk Level:: Medical - moderate - high VTE Device Contraindication: N/A - Device Ordered VTE Drug Contraindication: N/A - Med Ordered
--- NOTE | 2025-02-07 10:00 | W.PM.OPN ---
Operative Note Operative Note Date of Service: 02/07/25 Narrative: Preop diagnosis: Diverticulitis, sigmoid with large intramural abscess Postop diagnosis: The same Procedure: Hand assisted laparoscopic sigmoid resection with extensive lysis of adhesions, colorectal end-to-end anastomosis, loop ileostomy, intraop flexible sigmoidoscopy Surgeon: Fernando Pineda MD assistant dean of students: ALEISHA Beck The patient is a 44 year male admitted 4 days ago because of the sigmoid diverticulitis with a an intramural abscess. He had been with the antibiotics but a follow up CAT scan showed persistence of inflammatory changes surrounding the sigmoid along with the larger intramural abscess. In view of this, I told him it would be best to proceed with resection. I explained the technique of the planned procedure as well as the risks, benefits, and alternatives and he had given consent He was brought to the operating room. He was placed in he had a lithotomy position under general anesthesia via endotracheal tube. A Alcantar catheter was inserted. The abdomen and the perineum were prepped and draped usual sterile fashion. A surgical time-out was done. The patient was receiving scheduled IV antibiotics I made a short infraumbilical midline incision with a blade 15. This carried down with electrocautery the full-thickness of the thick subcutaneous fat to expose the fascia. The fascia incised. The peritoneum was entered. We positioned the Anatoliy wound retractor. We attached the GelPort along with the insufflating port. We insufflated and inserted the 10 mm 30 degree scope with laparoscopic visualization, inserted a 5/12 mm port in the epigastric area small stab incision. The laparoscope was then moved into this epigastric port. I removed the insufflating port. The patient is placed in a steep head-down position. I placed my left hand through the GelPort. I retracted all the bowel loops away from the pelvis. I was able to then visualize the left colon and traced this all the way to the rectum. There was note of a long segment of the sigmoid colon at the distal area that was markedly indurated, with a large abscess. There was note of severe inflammatory changes surrounding this along with adherent bowel loops on the right side. This segment of the inflamed sigmoid was also severely adherent to the sidewall circumferentially because of the active inflammation. We carefully did blunt dissection my index finger to see if we can create the sigmoid from anterior all the way to the left and right side. We are able to achieve some separation. There was note of a large abscess which drained so cultures of this were taken. This large abscess cavity seemed to be to the right of the distal sigmoid. We proceeded to carefully separate the bowel loops away from this inflamed segment using a combination of blunt dissection with my finger as well as gentle dissection with the LigaSure. We continued with this dissection until eventually we are able to. The sigmoid away from the small bowel loops I then proceeded to carefully do blunt dissection distal to the inflamed area to see if we can feel for a incision into supple and noninflamed rectosigmoid. We had to do careful and extensivel blunt dissection of the distal sigmoid with the fingers until was able to feel for supple segment. This allowed me some mobilization of the rectosigmoid as well. I then proceeded to identify the proximal sigmoid. An area which was supple and noninflamed was seen. I proceeded to mobilize the sigmoid by dividing attachments to the sidewall using the LigaSure. I opened up the ligamentous attachments along the left colon white line of Toldt with fissure as well all the way to the proximal left colon to achieve mobilization. This allowed me of good length of the left colon and sigmoid in preparation for anastomosis later I need to do dissection of the distal sigmoid and rectosigmoid until was able to feel for with the supple segment. I created a mesenteric window using blunt dissection with my index finger and with the LigaSure. I positioned the powered Endo-RAMÓN 60 mm stapler across this rectosigmoid through the mesenteric window. This was fired to dissect this area. I proceeded to then define a supple area of the proximal sigmoid the mesenteric window proximal to the inflamed segment. I divided this as well with the same powered Endo-RAMÓN 60 mm stapler. I had to mobilize the left side of this inflamed segment some more with the LigaSure to release this from the sidewall. There was note of a lot of dense inflammatory adhesions in the area and so we had to proceed slowly. I then proceeded to define the attached mesentery of this disease segment. I serially divided this mesentery with the LigaSure from proximal to connect with the distal line of resection these attached mesentery was very indurated and inflamed so we had to proceed slowly and divide the mesentery in short segments. There was note of significant oozing which we had to control with the LigaSure on the very indurated mesentery. We completed transection of the attached mesentery and the entire segment of diseased sigmoid. This was retrieved through the line incision We reinserted the ports and re-insufflated. We examined the rectal stump. There was note of good hemostasis on the area of dissection. We copiously irrigated in view of the presence of pus earlier I then proceeded to desufflate and achieved the proximal stump. I excised the staple line with electrocautery to enter the lumen. I applied a pursestring Prolene 3-0 stitch. The proximal stump was dilated to 28 mm using the dilators. I then positioned the 28 mm anvil into the lumen and tightened the pursestring. We did careful sharp dissection with electrocautery to clear up margins surrounding the string to allow for a street light cleaner end-to-end anastomosis We placed placed this stump back into the peritoneal cavity and repositioned the GelPort. The 1st esl instructional assistant then proceeded to dilate the rectum from below. She then advanced the 28 mm EEA apparatus through the rectum all the way into the anterior side of the staple line of the rectal stump. The spike was then extubated through this anterior wall and I attached the anvil into the spike. We proceeded to tighten the stapler, making sure that there were no bowel loops or any other tissue caught between the earlier staplers The stapler was fired to create our do end-to-end circular anastomosis. Has a down anastomosis with insufflation and there were no bubbling seen around the anastomosis with this immersed in irrigation fluid. I suctioned out the irrigant fluid We proceeded to do a flexible sigmoidoscopy to examined the staple line. This was done by the 1st esl instructional assistant. The scope was gently advanced all the way to the sigmoid to examined the staple line. This appeared to be intact was no gap or any evidence of any leak. Furthermore the area appeared to be well vascularized with a any signs of ischemia The flexible sigmoidoscope was withdrawn with desufflation . We then proceeded to re-insufflated the peritoneal cavity. We examined the small bowel loops surrounding the pelvis earlier for any injury. The we did not see any evidence of any injury I identified the cecum laparoscopically. I traced the terminal ileum ideas my segment for the diverting loop ileostomy. We desufflated . I excised the discoid piece of skin on the lower quadrant that had been earlier marked by the stoma nurse using the blade 15.. I divided the thick subcutaneous fat with electrocautery to expose the anterior sheath. The anterior incision was incised and we did muscles splitting of the rectus. We incised the posterior sheath. He pulled up the loop of distal ileum using the Arcenio drain through this stoma opening We replaced the Arcenio drain with a stoma bridge We then proceeded to inspect the again through the midline incision. There was note of good hemostasis within the peritoneal cavity. We therefore closed the fascia of the midline with a running Maxon 1 stitch. We examined the fascial closure laparoscopically and there were no bowel loops caught by the sutures. We therefore removed the port sites after desufflation We closed the skin incisions with skin efrain. We then matured the loop ileostomy by incising the anterior wall with electrocautery. I secured the open bowel wall with a circumferential row of Polysorb 3-0 sutures to the subdermal layer with full-thickness sutures. Dressings were applied. The stoma appliance was positioned. The procedure was then completed. A TAP was then done by the anesthesiologist. The patient tolerated the procedure well. There were no immediate complications. Initial and final counts of sponges and instruments were correct. Estimated blood loss was about 50 cc. The patient is extubated without difficulty and transferred to the recovery room with stable vital signs. The patient is extubated without difficulty
[2025-02-07] MEDS: Acetaminophen 1,000 MG/100 ML PIGGYBACK 400 MG IV ×3 (12:48→23:44)
[2025-02-07] MEDS: HYDROmorphone HCl 0.5 MG/0.5 ML SYRINGE IVPUSH ×3 (12:57→23:44)
--- NOTE | 2025-02-07 16:06 | PM.EVENT ---
Event Note Date of Service: 02/07/25 Event Note: Seen on late afternoon rounds Appears to have good pain control Looks comfortable although does admit to pain on incisions Stoma viable Good urine output Stable vital signs Abdomen is soft Continue pain management On clear liquids Incentive spirometry his mother, Leann at bedside, updated Time Spent With Patient Time: Total time managing care of this patient today ____ minutes.
[2025-02-07] MEDS: oxyCODONE HCl Immed Release 5 MG TABLET 10 MG PO (23:09)
[2025-02-08] MEDS: Piperacillin Sodium/Tazobactam 3.375 GM in 0.9 % Sodium Chloride 50 ML IV ×4 (02:20→19:17)
[2025-02-08 03:21] VITALS: BP 119/76; PULSE 59; RESP 18; TEMP 36.2; O2SAT 95
[2025-02-08] MEDS: HYDROmorphone HCl 0.5 MG/0.5 ML SYRINGE IVPUSH (05:03)
[2025-02-08] MEDS: Acetaminophen 1,000 MG/100 ML PIGGYBACK 400 MG IV ×3 (05:04→18:04)
[2025-02-08 06:01] LABS: MANUAL DIFF FLAG NO
[2025-02-08 06:19] LABS: Basophils Absolute Auto 0.1 X10*3/uL (0.0-0.2); Basophils Percent Auto 0.4 % (0-2); Eosinophils Absolute Auto 0.1 X10*3/uL (0.0-0.4); Eosinophils Percent Auto 0.7 % (0-4); Hematocrit 38.2 % (42.0-52.0); Hemoglobin 13.4 g/dl (14.0-18.0); Imm Gran Abs Auto 0.07 X10*3/uL (0.00-0.03); Imm Gran Pct Auto 0.6 % (0.0-0.4); Lymphocytes Absolute Auto 1.9 X10*3/uL (1.2-4.9); Lymphocytes Percent Auto 16.2 % (20-40); Mean Corpuscular HGB Conc 35.1 g/dl (31.0-36.0); Mean Corpuscular Hemoglobin 31.6 pg (27.0-33.0); Mean Corpuscular Volume 90.1 fL (80.0-98.0); Monocytes Absolute Auto 1.2 X10*3/uL (0.1-1.2); Monocytes Percent Auto 10.6 % (2-11); Neutrophils Absolute Auto 8.2 x10*3/uL (2.0-8.3); Neutrophils Percent Auto 71.5 % (45-73); Platelet Count 349 X10*3/uL (160-400); Red Blood Count 4.24 X10*6/uL (4.60-5.80); White Blood Count 11.5 X10*3/uL (4.8-10.8)
[2025-02-08 06:45] LABS: Anion Gap 13 (12-20); Blood Urea Nitrogen 7 mg/dL (9-16); Calcium 8.5 mg/dL (8.4-10.2); Carbon Dioxide 24 mmol/L (22-29); Chloride 103 mmol/L (96-108); Creatinine Clr Calc Pharmacy 184.1; Estimated Glomerular Filt Rate > 60; Glucose Fasting 101 mg/dL (60-99); Potassium 3.6 mmol/L (3.3-5.1); Sodium 136 mmol/L (135-145)
[2025-02-08 07:34] VITALS: BP 152/98; PULSE 66; RESP 17; TEMP 36.6; O2SAT 96
--- NOTE | 2025-02-08 07:34 | P.PNGS_ITS ---
Subjective Subjective Date of Service: 02/08/25 Interval history: Reports increased incisional pain, dilaudid helping a little. Denies nausea. Tolerating some clears. Has not been OOB yet. Physical Exam 2 Vital Signs: Vital Signs: Last Vital Signs Temp 97.2 F 02/08/25 03:21 Pulse 59 02/08/25 03:21 Resp 18 02/08/25 03:21 BP 119/76 02/08/25 03:21 Pulse Ox 95 02/08/25 03:21 O2 Del Method Room Air 02/08/25 03:21 O2 Flow Rate 2 02/07/25 12:21 BMI result Body Mass Index 35.7 Const: General: comfortable, no acute distress and alert O rientation/consciousness: patient oriented x3 Resp: Effort & Inspection: normal respiratory effort GI: Other: abdomen mildly distended ostomy pink, bridge in place, small amount of bilious output mild incisional tenderness Palpation (GI): Soft to palpation, no guarding and not rigid Percussion: Yes tympanic to percussion Skin: General skin exam: no rashes or lesions noted Neuro: General: patient oriented x3 and moves all extremities Objective Data Active Medications Calcium Carbonate (Calcium Carbonate 750 Mg Tab.Chew) 750 mg PO Q4H PRN PRN Reason: Heartburn Heparin Sodium (Porcine) (Heparin Sodium,Porcine 5,000 Unit/Ml Vial) 5,000 unit SUBCUT Q8H [facility] On Hold: 02/05/25 13:27 Resume: 02/08/25 09:00 Last Admin: 02/05/25 04:23 Dose: 5,000 unit Documented By: SEFERINO Hydromorphone HCl (Hydromorphone Hcl 0.5 Mg/0.5 Ml Syringe) 0.5 mg IVPUSH Q3H PRN; Protocol PRN Reason: Pain, Severe (Pain Scale 7-10) Last Admin: 02/08/25 05:03 Dose: 0.5 mg Documented By: ANJELICA Lactated Ringer's (Lr) 1,000 mls @ 100 mls/hr IVCONT .Q10H [facility] Last Admin: 02/08/25 05:12 Dose: Not Given Documented By: ANJELICA Non-Admin Reason: IV Running Piperacillin Sod/Tazobactam (Sod 3.375 gm/ Sodium Chloride) 50 mls @ 100 mls/hr IV Q6H [facility] Last Infusion: 02/08/25 02:57 Dose: Infused Documented By: ANJELICA Acetaminophen (Ofirmev) 1,000 mg in 100 mls @ 400 mls/hr IV Q6H [facility] Last Infusion: 02/08/25 05:32 Dose: Infused Documented By: ANJELICA Ketorolac Tromethamine (Ketorolac Tromethamine 30 Mg/Ml Vial) 30 mg IVPUSH Q6H PRN PRN Reason: Pain, Mild 1-3,fever,headache Melatonin (Melatonin 3 Mg Tablet) 6 mg PO BEDTIME PRN PRN Reason: Insomnia Ondansetron HCl (Ondansetron Hcl 4 Mg/2 Ml Vial) 4 mg IVPUSH Q6H PRN PRN Reason: Nausea and Vomiting Oxycodone HCl (Oxycodone Hcl Immed Release 5 Mg Tablet) 10 mg PO Q4H PRN PRN Reason: Pain, Moderate(Pain Scale 4-6) Last Admin: 02/07/25 23:09 Dose: 10 mg Documented By: ANJELICA Sodium Chloride (0.9 % Sodium Chloride Flush 3 Ml Syringe) 3 ml IVFLUSH QSHIFT [facility] Last Admin: 02/08/25 07:10 Dose: Not Given Documented By: VITOR Non-Admin Reason: IV Running Labs 02/08/25 05:41 02/08/25 05:41 Labs: Laboratory Results - last 24 hr 02/08/25 05:41 MCV 90.1 MCH 31.6 MCHC 35.1 RDW 12.0 Plt Count 349 MPV 10.0 Immature Gran % (Auto) 0.6 H Neut % (Auto) 71.5 Lymph % (Auto) 16.2 L [place] % (Auto) 10.6 Eos % (Auto) 0.7 Baso % (Auto) 0.4 Lymph # (Auto) 1.9 [place] # (Auto) 1.2 Eos # (Auto) 0.1 Baso # (Auto) 0.1 Abs Immat Gran (auto) 0.07 H Absolute Neuts (auto) 8.2 Absolute Nucleated RBC 0.000 Nucleated RBC % (auto) 0.0 Anion Gap 13 Estim Creat Clear Calc 184.1 Estimated GFR > 60 Fasting Glucose 101 H Calcium 8.5 D Microbiology Microbiology Results: Microbiology 02/07/25 08:12 Gram Stain - Final Abscess Intra-abdominal Procedures Date of Service Date of Service: 02/08/25 Progress Note: A&P Assessment and plan (1) Diverticulitis of intestine with abscess: Status: Acute (2) Ileostomy in place: Status: Acute Plan POD #1 s/p hand assisted laparoscopic sigmoid resection with extensive lysis of adhesions, colorectal end-to-end anastomosis, loop ileostomy, intraop flexible sigmoidoscopy for sigmoid diverticulitis with large abscess. He is having difficulty with incisional pain this morning. VSS. Abd exam distended but soft, appropriate post op tenderness, dressings intact, ileostomy viable appearing with bilious output. AM labs reviewed. Cont IV zosyn, f/u abscess culture. Will adjust analgesics and make ketorolac ATC and increase dilaudid. Encouraged OOB/ambulation and increasing activity, incentive spirometer 10x/hr. Dc barker. Continue clear liquids for now. Ostomy care and education. Time Spent With Patient Time: Total time managing care of this patient today ____ minutes. Quality Stroke Does the patient have a stroke diagnosis?: No VTE Prior VTE?: No VTE Risk Level:: Medical - moderate - high VTE Device Contraindication: N/A - Device Ordered VTE Drug Contraindication: N/A - Med Ordered
[2025-02-08] MEDS: Ketorolac Tromethamine 30 MG/ML VIAL IVPUSH ×3 (08:00→19:17)
[2025-02-08] MEDS: HYDROmorphone HCl 0.5 MG/0.5 ML SYRINGE 1 MG IVPUSH ×2 (08:00→20:55)
[2025-02-08] MEDS: Lactated Ringers 1,000 ML 100 ML IVCONT ×2 (08:53→18:22)
--- NOTE | 2025-02-08 09:11 | HO.POSTANES ---
Post Anesthesia Evaluation Post Anesthesia Evaluation Date of Service: 02/08/25 Vital Signs: Vital Signs Temp Pulse Resp BP Pulse Ox O2 Del Method 02/08/25 07:34 97.8 F 66 17 152/98 H 96 Room Air 02/08/25 03:21 97.2 F 59 18 119/76 95 Room Air Anesthesia: Regional (Bilateral TAP block) and General Endotracheal-GETA Mental Status: Awake Nausea/Vomiting: None Hydration: Adequate Anesthesia-Related Issues: No Anes. Related Issues Comments: Patient was experiencing significant pain this morning after regional block wore off. He was currently receiving pain medication as ordered by the primary surgical team.
[2025-02-08] MEDS: oxyCODONE HCl Immed Release 5 MG TABLET 10 MG PO (13:37)
[2025-02-08] MEDS: Heparin Sodium,Porcine 5,000 UNIT/ML VIAL 5000 UNIT SUBCUT ×2 (13:38→20:55)
--- NOTE | 2025-02-08 14:56 | MHC.CM.PN ---
Patient is not cleared for discharge today. S/P Resection of Sigmoid diverticulitis with a an intramural abscess, ALIRIO with loop ileostomy creation. He is ordered clear liquid diet, intake marginal. DP Home self care car is in lot.
[2025-02-08 15:32] VITALS: BP 122/66; PULSE 67; RESP 17; TEMP 36.6; O2SAT 94
[2025-02-08 20:00] VITALS: BP 132/68; PULSE 79; RESP 18; TEMP 37.2; O2SAT 94
[2025-02-09] MEDS: Acetaminophen 1,000 MG/100 ML PIGGYBACK 400 MG IV ×5 (00:19→23:17)
[2025-02-09] MEDS: Piperacillin Sodium/Tazobactam 3.375 GM in 0.9 % Sodium Chloride 50 ML IV ×4 (01:35→20:46)
[2025-02-09] MEDS: Ketorolac Tromethamine 30 MG/ML VIAL IVPUSH ×4 (01:35→20:38)
[2025-02-09 03:40] VITALS: BP 133/77; PULSE 78; RESP 18; TEMP 36.2; O2SAT 95
[2025-02-09] MEDS: Heparin Sodium,Porcine 5,000 UNIT/ML VIAL 5000 UNIT SUBCUT ×3 (06:03→20:38)
[2025-02-09] MEDS: Lactated Ringers 1,000 ML 100 ML IVCONT (06:03)
[2025-02-09 07:28] VITALS: BP 156/83; PULSE 70; RESP 18; TEMP 36.6; O2SAT 94
[2025-02-09] MEDS: oxyCODONE HCl Immed Release 5 MG TABLET 10 MG PO ×2 (08:41→13:44)
[2025-02-09 10:19] VITALS: RESP 20
[2025-02-09] MEDS: HYDROmorphone HCl 0.5 MG/0.5 ML SYRINGE 1 MG IVPUSH ×2 (10:19→16:31)
--- NOTE | 2025-02-09 13:57 | PM.PNGS ---
Subjective Subjective Date of Service: 02/09/25 Interval history: Patient is doing well no significant issues complaining of a little bit of pain with just the oxycodone but improved when taking the Toradol Physical Exam Vital Signs: Vital Signs: Last Vital Signs Temp 97.8 F 02/09/25 07:28 Pulse 70 02/09/25 07:28 Resp 20 02/09/25 10:19 BP 156/83 H 02/09/25 07:28 Pulse Ox 94 02/09/25 07:28 O2 Del Method Room Air 02/09/25 07:28 O2 Flow Rate 2 02/07/25 12:21 BMI result Body Mass Index 35.7 Const: General: cooperative, healthy appearing and comfortable Resp: Effort & Inspection: normal respiratory effort Auscultation: clear to auscultation bilaterally Cardio: Rate: regular rate Rhythm: regular rhythm GI: Other: Abdomen is soft little distended active bowel sounds ileostomy working with gas and liquid stool Psych: Appearance: grossly normal Mental Status: mental status grossly normal Speech and movement: Normal speech and movement present Affect: normal affect Attitude: cooperative Thought process: Normal thought process present Objective Data Active Medications Calcium Carbonate (Calcium Carbonate 750 Mg Tab.Chew) 750 mg PO Q4H PRN PRN Reason: Heartburn Heparin Sodium (Porcine) (Heparin Sodium,Porcine 5,000 Unit/Ml Vial) 5,000 unit SUBCUT Q8H [facility] Last Admin: 02/09/25 13:46 Dose: 5,000 unit Documented By: ANAM Hydromorphone HCl (Hydromorphone Hcl 0.5 Mg/0.5 Ml Syringe) 1 mg IVPUSH Q4H PRN; Protocol PRN Reason: Pain, Severe (Pain Scale 7-10) Last Admin: 02/09/25 10:19 Dose: 1 mg Documented By: ANAM Lactated Ringer's (Lr) 1,000 mls @ 100 mls/hr IVCONT .Q10H [facility] Last Admin: 02/09/25 09:53 Dose: Not Given Documented By: ANAM Non-Admin Reason: IV Running Piperacillin Sod/Tazobactam (Sod 3.375 gm/ Sodium Chloride) 50 mls @ 100 mls/hr IV Q6H [facility] Last Admin: 02/09/25 13:47 Dose: 100 mls/hr Documented By: ANAM Acetaminophen (Ofirmev) 1,000 mg in 100 mls @ 400 mls/hr IV Q6H [facility] Last Infusion: 02/09/25 13:22 Dose: Infused Documented By: ANAM Ketorolac Tromethamine (Ketorolac Tromethamine 30 Mg/Ml Vial) 30 mg IVPUSH Q6H [facility] Last Admin: 02/09/25 13:45 Dose: 30 mg Documented By: ANAM Melatonin (Melatonin 3 Mg Tablet) 6 mg PO BEDTIME PRN PRN Reason: Insomnia Ondansetron HCl (Ondansetron Hcl 4 Mg/2 Ml Vial) 4 mg IVPUSH Q6H PRN PRN Reason: Nausea and Vomiting Oxycodone HCl (Oxycodone Hcl Immed Release 5 Mg Tablet) 10 mg PO Q4H PRN PRN Reason: Pain, Moderate(Pain Scale 4-6) Last Admin: 02/09/25 13:44 Dose: 10 mg Documented By: ANAM Sodium Chloride (0.9 % Sodium Chloride Flush 3 Ml Syringe) 3 ml IVFLUSH QSHIFT [facility] Last Admin: 02/09/25 08:22 Dose: Not Given Documented By: ANAM Non-Admin Reason: IV Running Labs 02/08/25 05:41 02/08/25 05:41 Microbiology Microbiology Results: Microbiology 02/07/25 08:12 Gram Stain - Final Abscess Intra-abdominal Routine Culture - Preliminary Gram negative merissa 02/03/25 10:34 Blood Culture - Final Blood - Venous No growth after 5 days. 02/03/25 09:45 Blood Culture - Final Blood - Venous No growth after 5 days. Procedures Date of Service Date of Service: 02/09/25 Progress Note: A&P Assessment and plan (1) Diverticulitis of intestine with abscess: Status: Acute Plan Patient is postop day 2 from sigmoid resection and anastomosis for perforated diverticulitis as well as diverting loop ileostomy. Overall looks really good doing well. Plan to slow advance diet continue IV fluids IV antibiotics and IV pain meds. He understands and agrees with the above plan Time Spent With Patient Time: Total time managing care of this patient today ____ minutes. Quality Stroke Does the patient have a stroke diagnosis?: No VTE Prior VTE?: No VTE Risk Level:: Medical - moderate - high VTE Device Contraindication: N/A - Device Ordered VTE Drug Contraindication: N/A - Med Ordered
[2025-02-09] MEDS: 0.9 % Sodium Chloride Flush 3 ML SYRINGE IVFLUSH ×2 (14:44→20:47)
[2025-02-09 15:26] VITALS: BP 131/81; PULSE 85; RESP 18; TEMP 36.4; O2SAT 92
[2025-02-09 19:20] VITALS: BP 114/72; PULSE 76; RESP 18; TEMP 36.4; O2SAT 96
[2025-02-10] MEDS: Ketorolac Tromethamine 30 MG/ML VIAL IVPUSH ×4 (02:04→20:30)
[2025-02-10] MEDS: Piperacillin Sodium/Tazobactam 3.375 GM in 0.9 % Sodium Chloride 50 ML IV ×4 (02:07→20:30)
[2025-02-10 03:03] VITALS: BP 140/80; PULSE 74; RESP 18; TEMP 36.1; O2SAT 97
[2025-02-10] MEDS: Heparin Sodium,Porcine 5,000 UNIT/ML VIAL 5000 UNIT SUBCUT ×3 (06:20→20:30)
[2025-02-10] MEDS: Acetaminophen 1,000 MG/100 ML PIGGYBACK 400 MG IV (06:23)
[2025-02-10] MEDS: 0.9 % Sodium Chloride Flush 3 ML SYRINGE IVFLUSH ×3 (07:23→21:29)
[2025-02-10 07:26] VITALS: BP 123/80; PULSE 63; RESP 16; TEMP 36.1; O2SAT 94
--- NOTE | 2025-02-10 10:28 | PM.PNGS ---
Subjective Subjective Date of Service: 02/10/25 Interval history: Patient looks very good slept well had some toes last night and some thicker still material coming through the ileostomy not much pain Physical Exam Vital Signs: Vital Signs: Last Vital Signs Temp 97.0 F 02/10/25 07:26 Pulse 63 02/10/25 07:26 Resp 16 02/10/25 07:26 BP 123/80 02/10/25 07:26 Pulse Ox 94 02/10/25 07:26 O2 Del Method Room Air 02/10/25 07:26 O2 Flow Rate 2 02/07/25 12:21 BMI result Body Mass Index 35.7 Const: General: cooperative, healthy appearing and comfortable Resp: Effort & Inspection: normal respiratory effort Auscultation: clear to auscultation bilaterally Cardio: Rate: regular rate Rhythm: regular rhythm GI: Other: Abdomen is soft nondistended active bowel sounds ostomy looks great stool and gas in the bag Objective Data Active Medications Calcium Carbonate (Calcium Carbonate 750 Mg Tab.Chew) 750 mg PO Q4H PRN PRN Reason: Heartburn Heparin Sodium (Porcine) (Heparin Sodium,Porcine 5,000 Unit/Ml Vial) 5,000 unit SUBCUT Q8H [facility] Last Admin: 02/10/25 06:20 Dose: 5,000 unit Documented By: SEFERINO Hydromorphone HCl (Hydromorphone Hcl 0.5 Mg/0.5 Ml Syringe) 1 mg IVPUSH Q4H PRN; Protocol PRN Reason: Pain, Severe (Pain Scale 7-10) Last Admin: 02/09/25 16:31 Dose: 1 mg Documented By: ANAM Piperacillin Sod/Tazobactam (Sod 3.375 gm/ Sodium Chloride) 50 mls @ 100 mls/hr IV Q6H [facility] Last Infusion: 02/10/25 08:16 Dose: Infused Documented By: ANAM Acetaminophen (Ofirmev) 1,000 mg in 100 mls @ 400 mls/hr IV Q6H [facility] [place] Last Infusion: 02/10/25 06:40 Dose: Infused Documented By: SEFERINO Ketorolac Tromethamine (Ketorolac Tromethamine 30 Mg/Ml Vial) 30 mg IVPUSH Q6H [facility] Last Admin: 02/10/25 07:27 Dose: 30 mg Documented By: ANAM Melatonin (Melatonin 3 Mg Tablet) 6 mg PO BEDTIME PRN PRN Reason: Insomnia Ondansetron HCl (Ondansetron Hcl 4 Mg/2 Ml Vial) 4 mg IVPUSH Q6H PRN PRN Reason: Nausea and Vomiting Oxycodone HCl (Oxycodone Hcl Immed Release 5 Mg Tablet) 10 mg PO Q4H PRN PRN Reason: Pain, Moderate(Pain Scale 4-6) Last Admin: 02/09/25 13:44 Dose: 10 mg Documented By: ANAM Sodium Chloride (0.9 % Sodium Chloride Flush 3 Ml Syringe) [facility] Last Admin: 02/10/25 07:23 Dose: 3 ml Documented By: ANAM Labs 02/08/25 05:41 02/08/25 05:41 Microbiology Microbiology Results: Microbiology 02/07/25 08:12 Gram Stain - Final Abscess Intra-abdominal Routine Culture - Final Escherichia coli Procedures Date of Service Date of Service: 02/10/25 Progress Note: A&P Assessment and plan (1) Diverticulitis of intestine with abscess: Status: Acute Plan Patient is status post sigmoid resection for perforated diverticulitis and reanastomosis with diverting loop ileostomy doing very well. Plan to advance his diet and ambulate incentive spirometer. Continue with IV antibiotics Time Spent With Patient Time: Total time managing care of this patient today ____ minutes. Quality Stroke Does the patient have a stroke diagnosis?: No VTE Prior VTE?: No VTE Risk Level:: Medical - moderate - high VTE Device Contraindication: N/A - Device Ordered VTE Drug Contraindication: N/A - Med Ordered
[2025-02-10] MEDS: oxyCODONE HCl Immed Release 5 MG TABLET 10 MG PO (14:44)
[2025-02-10 15:12] VITALS: BP 110/66; PULSE 75; RESP 18; TEMP 36.3; O2SAT 94
[2025-02-10 20:00] VITALS: BP 133/72; PULSE 80; RESP 17; TEMP 36.8; O2SAT 94
[2025-02-11] MEDS: Ketorolac Tromethamine 30 MG/ML VIAL IVPUSH ×2 (01:30→08:01)
[2025-02-11] MEDS: Piperacillin Sodium/Tazobactam 3.375 GM in 0.9 % Sodium Chloride 50 ML IV ×2 (01:31→08:07)
[2025-02-11 03:24] VITALS: BP 112/71; PULSE 66; RESP 14; TEMP 36.7; O2SAT 95
[2025-02-11] MEDS: Heparin Sodium,Porcine 5,000 UNIT/ML VIAL 5000 UNIT SUBCUT (05:23)
[2025-02-11] MEDS: oxyCODONE HCl Immed Release 5 MG TABLET 10 MG PO (06:13)
[2025-02-11 07:24] VITALS: BP 120/75; PULSE 68; RESP 17; TEMP 36.3; O2SAT 94
[2025-02-11] MEDS: 0.9 % Sodium Chloride Flush 3 ML SYRINGE IVFLUSH (08:02)
--- NOTE | 2025-02-11 08:07 | PM.PNGS ---
Subjective Subjective Date of Service: 02/13/25 Interval history: Describes being sore on incision Tolerating diet Stoma with good output No fever Physical Exam Vital Signs: Vital Signs: Last Vital Signs Temp 97.3 F 02/11/25 07:24 Pulse 68 02/11/25 07:24 Resp 17 02/11/25 07:24 BP 120/75 02/11/25 07:24 Pulse Ox 94 02/11/25 07:24 O2 Del Method Room Air 02/11/25 07:24 O2 Flow Rate 2 02/07/25 12:21 BMI result Body Mass Index 35.7 Const: General: comfortable and no acute distress Resp: Effort & Inspection: normal respiratory effort Cardio: Rate: regular rate GI: Other: Incisions clean, stoma with good output Palpation (GI): Soft to palpation, not firm and no guarding Objective Data Active Medications Calcium Carbonate (Calcium Carbonate 750 Mg Tab.Chew) 750 mg PO Q4H PRN PRN Reason: Heartburn Heparin Sodium (Porcine) (Heparin Sodium,Porcine 5,000 Unit/Ml Vial) 5,000 unit SUBCUT Q8H [facility] Last Admin: 02/11/25 05:23 Dose: 5,000 unit Documented By: RAVI Hydromorphone HCl (Hydromorphone Hcl 0.5 Mg/0.5 Ml Syringe) 1 mg IVPUSH Q4H PRN; Protocol PRN Reason: Pain, Severe (Pain Scale 7-10) Last Admin: 02/09/25 16:31 Dose: 1 mg Documented By: ANAM Piperacillin Sod/Tazobactam (Sod 3.375 gm/ Sodium Chloride) 50 mls @ 100 mls/hr IV Q6H [facility] Last Infusion: 02/11/25 02:10 Dose: Infused Documented By: RAVI Melatonin (Melatonin 3 Mg Tablet) 6 mg PO BEDTIME PRN PRN Reason: Insomnia Ondansetron HCl (Ondansetron Hcl 4 Mg/2 Ml Vial) 4 mg IVPUSH Q6H PRN PRN Reason: Nausea and Vomiting Oxycodone HCl (Oxycodone Hcl Immed Release 5 Mg Tablet) 10 mg PO Q4H PRN PRN Reason: Pain, Moderate(Pain Scale 4-6) Last Admin: 02/11/25 06:13 Dose: 10 mg Documented By: HO.VENLA Sodium Chloride (0.9 % Sodium Chloride Flush 3 Ml Syringe) 3 ml IVFLUSH QSHIFT [facility] Last Admin: 02/10/25 21:29 Dose: 3 ml Documented By: MAGGY Labs 02/08/25 05:41 02/08/25 05:41 Microbiology Microbiology Results: Microbiology 02/07/25 08:12 Gram Stain - Final Abscess Intra-abdominal Routine Culture - Final Escherichia coli Procedures Date of Service Date of Service: 02/13/25 Progress Note: A&P Assessment and plan (1) Diverticulitis of intestine with abscess: Status: Acute Assessment and Plan: Status post sigmoid resection, reanastomosis with diverting loop ileostomy Tolerating diet Abdomen is soft and benign Good stoma function Looks well overall Depending on pain control, he may be able to go home today I explained to him follow up visit Stoma care Time Spent With Patient Time: Total time managing care of this patient today ____ minutes. Quality Stroke Does the patient have a stroke diagnosis?: No VTE Prior VTE?: No VTE Risk Level:: Medical - moderate - high VTE Device Contraindication: N/A - Device Ordered VTE Drug Contraindication: N/A - Med Ordered
--- NOTE | 2025-02-11 12:57 | PM.EVENT ---
Event Note Date of Service: 02/11/25 Event Note: Says he is tolerating diet well Stoma continues to function Pain well controlled Abdomen is soft and benign He says he is ready to be discharged Discharge instructions reviewed with the patient We will see in the office for follow up Time Spent With Patient Time: Total time managing care of this patient today ____ minutes.
--- NOTE | 2025-02-11 14:03 | MHC.CM.PN ---
PT WILL DC HOME TODAY, HE IS UNABLE TO RECEIVE VNA SERVICES HE DOES NOT HAVE A PCP TEACHINGS COMPLETED BY RN PT TO ARRANGE TRANSPORT
--- NOTE | 2025-02-11 15:08 | P.DS_ITS ---
DS: Providers Provider Date of Service: 02/11/25 Date of admission: 02/03/25 13:36 Date of discharge: 02/11/25 Primary care physician: None Physician Attending physician on admission: Fernando Pineda Consults: 02/05/25 13:24 Consult to Ostomy Care Routine Attending physician on discharge: Fernando Pineda DS: Diagnosis Discharge Diagnosis (1) Diverticulitis of intestine with abscess: Status: Acute DS: Summary Hospital Course Hospital Course: HPI AT ADMISSION: Tavo Valencia is a 44 year old male here in the ER for lower abdominal pain. He says that this started about 9 days ago and this has been fairly constant. He says that is low to moderate in intensity. He says that this has not really changed much over the past 9 days. In view of the persistence of his pain, he does need to come to the emergency room today. He describes maybe some mild chills but no fevers. He denies any problems urination. She denies any vomiting or nausea. He says that his bowel movements may have been inconsistent for the past 9 days. He has never had any surgeries in the past except for removal of a pilonidal cyst. He says he does not see any doctors at all so he is not aware of any medical problems. He does not take any medications. He had a leukocytosis of 15. CAT scan showed what appears to be intramural mass in the distal sigmoid that may represent phlegmon from diverticular disease. A tumor can not be completely ruled out at this time. HOSPITAL COURSE: He was admitted to the surgical service for further treatment of the sigmoid diverticulitis with intramural mass vs collection. Supportive measures were employed. He was started on IV zosyn, IVF and kept on clear liquids. He did have improvement in his symptoms with IV abx however a follow up CT scan showed persistence of inflammatory changes surrounding the sigmoid along with the larger intramural abscess. In view of this, it was recommended to proceed with resection. Arrangements were made for hand assisted laparoscopic sigmoid resection, ostomy creation. On 02/07/25, hand assisted laparoscopic sigmoid resection with extensive lysis of adhesions, colorectal end-to-end anastomosis, loop ileostomy, intraop flexible sigmoidoscopy was performed by Dr. Pineda without immediate complication. He had an uncomplicated recovery course. On POD #1, his barker was removed. He was ambulated and activity increased. He began to have output from his ostomy. His diet was slowly advanced. Ostomy education was performed. He was transitioned to oral analgesics. On the day of discharge, he was tolerating a solid diet without nausea or vomiting. He had good pain control on oral analgesics. His ostomy was functioning well and he was participating in ostomy care. He was ambulating without difficulty. He was hemodynamically stable with a benign abd exam abd clean incisions. His ostomy was viable appearing and his bridge was removed. He was discharged to home on 02/11/25 in stable condition. He unfortunately did not have VNA services available through his insurance but he was comfortable with ostomy care. He is to follow up in the office in 1 week for staple removal. Status at Discharge Functional status at discharge: independent ambulation Overall status at discharge: patient is progressing back to baseline Time Attestation Discharge Coordination Time (in mins): 40 Quality: Safe Use of Opioids Does Pt have an Active Cancer Diagnosis on the Problem List?: No Quality: Stroke Does the patient have a stroke diagnosis?: No Physical Exam Vital Signs: Vital Signs: Last Vital Signs Temp 97.3 F 02/11/25 07:24 Pulse 68 02/11/25 07:24 Resp 17 02/11/25 07:24 BP 120/75 02/11/25 07:24 Pulse Ox 94 02/11/25 07:24 O2 Del Method Room Air 02/11/25 07:24 O2 Flow Rate 2 02/07/25 12:21 BMI result Body Mass Index 35.7 Const: General: comfortable, no acute distress, well developed and alert Orientation/consciousness: patient oriented x3 Resp: Effort & Inspection: normal respiratory effort and able to speak in complete sentences GI: Other: ostomy pink, stool in appliance, ostomy bridge removed Inspection: Yes distended (mild) and Yes incision (clean, efrain intact ) Palpation (GI): Soft to palpation, Tenderness to palpation present (GI) (mild incisional) and no guarding Skin: General skin exam: no rashes or lesions noted Neuro: General: patient oriented x3 and moves all extremities DS: Data Data Completed and Pending Completed studies during hospitalization [Text1]: 02/07/25 08:44 Surgical [PTH] Routine A. Colon, sigmoid, segmental resection: Diverticular-associated segmental colitis with associated pericolonic abscess formation. B. Colon, EEA rings: Colonic tissue within normal limits Discharge Plan Discharge Anticipated Discharge Date/Time: 02/11/25 13:49 Patient Disposition: Home, Self-Care Discharge Diagnosis: s/p GAMALIEL sigmoid resection, diverting ileostomy for sigmoid diverticulitis with abscess Referrals: Fernando Pineda MD [Physician, General Surgery] - 1 Week Physician,None [Primary Care Provider, Medical] - 1 Week Discharge Medications: New oxycodone 5 mg tablet 5 mg PO Q4H PRN (Reason: pain (scale score 7-10)) Qty: 30 0RF Rx Instructions: Partial Fill upon patient request. oxycodone 5 mg tablet 5 mg PO Q4H PRN (Reason: pain) Qty: 20 0RF Rx Instructions: Partial Fill upon patient request. Continued phenazopyridine 95 mg Tablet 95 mg PO TID PRN (Reason: Pain) ibuprofen 200 mg Tablet 400 mg PO BID PRN (Reason: Pain) Discharge Orders: Discharge Order (Routine); Ordered 02/11/25 Ordered By: Fernando Pineda Diet: Advance to usual diet Activity on Discharge: No heavy lifting Stand Alone Forms: Patient Portal Discharge page Print Language: Faroese Activity Restrictions/Additional Instructions: If the incision area is tender, you may apply an ice pack for short intervals (No more than 20 minutes on, followed by at least 20 minutes off). Do not apply heat. Do not use creams, lotions, or topical antibiotics. These can cause infection or allergic reaction. Ok to shower. You have efrain closing your incision and these will be removed approximately 10-14 days after surgery. NO HEAVY LIFTING (>10lbs) or strenuous activity. Follow up in office. ([phone]) Call Your Doctor If: -Your temperature exceeds 101.5? F -You experience excessive pain or swelling -You have an unexpected reaction to medication -You have excessive bleeding -You experience continued vomiting/nausea -Your incision begins to separate -Your incision shows signs of infection such as increased redness, swelling, excessive pain, drainage (light blood or clear fluid is normal) or heat Ostomy recommendations: 1. Empty pouch before pouch change 2. Remove pouch using push/pull technique from top to bottom 3. Cleanse stoma and skin with tap water only - no soap or baby wipes 4. Pat dry 5. Measure stoma and cut new pouch no more than 1/8 inch larger than stoma and no smaller than stoma 6. If instructed by your ostomy nurse stretch barrier seal to the size of the stoma and press onto skin around stoma (up to the edge of the stoma but not onto the stoma) 7. Press the new pouch into place and hold for several minutes (close pouch tail) 8. Empty pouch when 1/3 to 1/2 full 9. Change pouch twice weekly on a schedule (for example, every Tuesday and ) and as needed for any leaking (feels like intense itch or burn at edge of stoma)? Care Plan Goals: Return to baseline health and resume normal activities following recovery period. Eventual ileostomy reversal. Health Concerns: diverticulitis with abscess Plan of Treatment: s/p GAMALIEL sigmoid resection, diverting loop ileostomy F/u in office in 2 weeks for wound check, staple removal Ostomy care Assessment: Doing well post op. Discharge Date/Time: 02/11/25 18:30
[2025-02-11 15:12] VITALS: BP 146/83; PULSE 84; RESP 18; TEMP 36.6; O2SAT 96
--- NOTE | 2025-02-11 15:28 | HO.OSTOMY ---
Ostomy Consult: Initial Teaching 44yr old male admitted to [facility] on 02/03/25 see H&P for detailed history and admission.? Consult for new ostomy teaching. ?He had an Loop ileostomy creation on 02/07/[address] Pineda. ?Upon entry into patient's room, he is sitting in his recliner chair, he is alert and oriented x 3, he currently has no complaints. ?Introductions were completed, he is agreeable to continuing with teaching. ? We discussed his pain control at 4/10 at the current moment, he reports increasing the use of his IS and ambulating the entire unit (2x today so far). ?We began by discussing general knowledge about the ileostomy and questions he had. ?We discussed opening and closing the ostomy pouch. He was able to independently provide a return demonstration on an empty pouch. He reported he has been emptying the pouch independently. We discussed the importance of emptying pouch when 1/3 to 1/2 full, how to empty pouch, and lining water with toilet paper to prevent splash back. With an empty Coloplast pouch he performed a demonstration. He reports he was educated last week by the outpt ostomy nurse from Dr. Pineda office. Unfortunately given insurance complication he does not qualify for VNA services. He was given extra supplies for home, patient was also agreeable to Coloplast care program. He reports clear understanding and is able to verbally walk me through a pouch change. We went over written education and he watched [facility] education videos. Written education kit given to pt. He was also educated on when to contact registered nurse ambulatory/Dr Pineda's office/seek emergency medical treatment. Patient was given some ostomy pouches for transition to home. Aware that Rx written for pouches and rings will be sent by Outpt nurse to [place] for home delivery.? Reviewed written education with patient and left at bedside for further review. ?He did watch the education videos supplied by [facility]. He is able to recall food items to thicken his diet and how to monitor output for dehydration and rehydration drinks. Permission was granted for pouch assessment and no leak was noted.? He was changed due to his discharge later today. We watched and participated in the pouch change. He did report his girlfriend would be able ot assist him she was not present and felt she did not need to be since she has care for ostomys in the past. His stoma is red moist round and budded above skin level. He was placed in a 1 piece coloplast [id number] cut to 35mm. He reported having no questions at this time, patient seems to have a good understanding of care and material at this time. All questions and concerns addressed at this time. We discussed the following steps: 1. Empty pouch before pouch change 2. Remove pouch using push/pull technique from top to bottom 3. Cleanse stoma and skin with tap water only - no soap or baby wipes 4. Pat dry 5. Measure stoma and cut new pouch no more than 1/8 inch larger than stoma and no smaller than stoma 6. If instructed by your ostomy nurse stretch barrier seal to the size of the stoma and press onto skin around stoma (up to the edge of the stoma but not onto the stoma) 7. Press the new pouch into place and hold for several minutes (close pouch tail) 8. Empty pouch when 1/3 to 1/2 full 9. Change pouch twice weekly on a schedule (for example, every Tuesday and ) and as needed for any leaking (feels like intense itch or burn at edge of stoma) 10. May order pre-cut pouches (already cut to size of stoma) once stoma measures the same size consistently. ?
[2025-02-11 18:06] VITALS: BP 141/88; PULSE 88; RESP 18; TEMP 36.4; O2SAT 95
== END 2025-02-11 18:30 | disposition home or self-care (01) | DRG 230 ==
LOC: HO.ED 13:23 → HO.EDOVER 13:42 → HO.S3 14:50
PROVIDERS: Physician Assistant Surgical; Registered Nurse Emergency; Admitting Provider Surgery; Emergency Provider Emergency Medicine; Visit Provider Surgery
PROC: 0D1B0Z4 Bypass Ileum to Cutaneous, Open Approach (ICD-10-PCS; principal; 2025-02-07 07:30)
DX: K57.20 Diverticulitis of large intestine with perforation and abscess without bleeding (principal); K65.1 Peritoneal abscess; K66.0 Peritoneal adhesions (postprocedural) (postinfection); Z87.891 Personal history of nicotine dependence
CPT/HCPCS: 36415; 74177; 80048; 80053; 81003; 83605; 85025; 85027; 86850; 86900; 86901; 87040; 87070; 87077; 87186; 87205; 87491; 87591; 88305; 88307; 99285; J0131; J0665; J0696; J1100; J1171; J1644; J1836; J1885; J2003; J2250; J2270; J2405; J2543; J2704; J2795; J3010; J7120; Q9967

== ENCOUNTER → 2025-02-03 11:08 | Outpatient (BNV) | payer MEDICAID, SELFPAY | PROVIDERS: Emergency Provider Emergency Medicine; Visit Provider Radiology Diagnostic Radiology | DX: K57.10 Diverticulosis of small intestine without perforation or abscess without bleeding (principal) | CPT/HCPCS: 74177 ==

== ENCOUNTER 2025-02-03 13:36 | Outpatient (BNV) | payer MEDICAID, SELFPAY | END 2025-02-05 07:00 | PROVIDERS: Admitting Provider Surgery; Emergency Provider Emergency Medicine; Visit Provider Radiology Diagnostic Radiology | DX: K76.0 Fatty (change of) liver, not elsewhere classified (principal) | CPT/HCPCS: 74177 ==

== ENCOUNTER → 2025-02-03 13:36 | Outpatient (BNV) | payer MEDICAID, SELFPAY | PROVIDERS: Admitting Provider Surgery; Emergency Provider Emergency Medicine; Visit Provider Surgery | DX: K57.80 Diverticulitis of intestine, part unspecified, with perforation and abscess without bleeding (principal) | CPT/HCPCS: 99222; 99232; 99499 ==

== ENCOUNTER 2025-03-01 14:15 | Outpatient (AMB) | payer MEDICAID, SELFPAY ==
--- NOTE | 2025-03-01 14:18 | MHC.OFFVIS ---
Vital Signs 03/01/25 14:29 Height 5 ft 11 in Weight 255 lb BMI 35.6 BP 135/73 Blood Pressure Location Lt brachial Position Sitting Pulse 80 Intake Visit Reasons: s/p Bowel Resection Laparoscopic Intake Note: Patient is seen in office for post op assessment post bowel resection. Pt c/o:having issues with the bag not sticking properly Waiter/Waitress Club Required: No Accompanied by: Family/Other Allergies No Known Allergies Allergy (Verified 03/01/25 14:28) HPI HPI s/p Bowel Resection Laparoscopic: Details: 44-year-old male here for a follow-up. He had undergone assisted laparoscopic sigmoid resection, anastomosis, with a diverting loop ileostomy for sigmoid diverticulitis with abscess last 02/07/2025 He is currently doing well. He has, is functioning well. He has a good oral intake. He does state that stoma appliance has periodically been coming off [facility] Medical History (Updated 03/01/25 @ 14:39 by Fernando Pineda MD) Colonic diverticular abscess Surgical History History of bowel resection (02/07/25) Previous back surgery Social History Household Members: Significant Other Housing: House Do you presently have visiting nurse or other home services: No Patient Tobacco Use Status: Former Tobacco user e-Cigarette/Vaping Use: Former Use Substance Use Type: Marijuana service: No Review of Systems Const Denies chills and Denies fever(s) Resp Denies cough GI Denies abdominal pain Physical Exam Vital Signs: Last Vital Signs Pulse 80 03/01/25 14:29 BP 135/73 03/01/25 14:29 BMI result Body Mass Index 35.6 Const Other: Looks well General: comfortable and no acute distress GI Other: Soft, all incisions well healed, ileostomy functioning well Assessment & Plan Assessment & Plan (1) Colonic diverticular abscess: Code(s): K57.20 - Diverticulitis of large intestine with perforation and abscess without bleeding Category: Medical Plan: Status post sigmoid resection, reanastomosis and diverting loop ileostomy He is doing very well postoperatively. I removed all his skin efrain. All incisions are well healed I will see him again in the office in about a month. We will schedule him for a colonoscopy thereafter prior to reversal of his loop ileostomy . He was advised to avoid lifting anything more than 24 hours for at least another week. Coding Level of Care Code Global (28021) Diagnoses Colonic diverticular abscess K57.20
[2025-03-01 14:29] VITALS: BP 135/73; PULSE 80; BMI 35.6
== END 2025-03-01 14:58 | disposition home or self-care (01) ==
LOC: HO.HGS 14:15
PROVIDERS: Visit Provider Surgery
DX: K57.20 Diverticulitis of large intestine with perforation and abscess without bleeding (principal)
CPT/HCPCS: 99024

== ENCOUNTER → 2025-03-01 14:15 | Outpatient (BNVA) | payer OTHER, SELFPAY | PROVIDERS: Visit Provider Surgery | DX: K57.20 Diverticulitis of large intestine with perforation and abscess without bleeding (principal) | CPT/HCPCS: 99212 ==

== ENCOUNTER 2025-04-03 09:20 | Outpatient (AMB) | payer OTHER, SELFPAY ==
--- NOTE | 2025-04-03 09:24 | MHC.OFFVIS ---
Vital Signs 04/03/25 09:29 Height 5 ft 11 in Weight 267 lb BMI 37.2 BP 135/81 Blood Pressure Location Rt brachial Position Sitting Pulse 77 Intake Visit Reasons: 1 month follow up s/p Bowel Resection Laparoscopic Intake Note: Patient here for 1mo follow up s/p sigmoid resection. Colonoscopy to be scheduled. Patient c/o: no concerns. Reports Ostomy working well. Surgery: 02-07-2025 Pool Servicer Required: No Accompanied by: girlfriend Sangeetha Allergies No Known Allergies Allergy (Verified 04/03/25 09:29) Medication List - Last Reconciled 04/03/25 by Fernando Pineda MD ibuprofen 400 mg PO BID PRN phenazopyridine 95 mg PO TID PRN HPI HPI 1 month follow up s/p Bowel Resection Laparoscopic: Details: 44-year-old male here for a follow-up. He had undergone assisted laparoscopic sigmoid resection, anastomosis, with a diverting loop ileostomy for sigmoid diverticulitis with abscess last 02/07/2025 He is currently doing well. His stoma is functioning well. He has a good oral intake. He says he does not have any problems with the colostomy appliance. He admits to having gained about 20 lb since the surgery. [facility] Medical History (Updated 03/01/25 @ 14:39 by Fernando Pineda MD) Colonic diverticular abscess Surgical History History of bowel resection (02/07/25) Previous back surgery Social History Household Members: Significant Other Housing: House Do you presently have visiting nurse or other home services: No Patient Tobacco Use Status: Former Tobacco user e-Cigarette/Vaping Use: Former Use Substance Use Type: Marijuana service: No Review of Systems Const Denies chills and Denies fever(s) Card Denies chest pain, Denies dyspnea and Denies dyspnea on exertion Resp Denies cough, Denies dyspnea and Denies dyspnea on exertion GI Denies hematochezia and Denies change in bowel habits Denies hematuria and Denies difficulty urinating Musc Denies back pain and Denies limited range of motion Neuro Denies focal weakness and Denies convulsions Psych Denies depression and Denies mood swings Physical Exam Const General: comfortable and no acute distress Orientation/consciousness: patient oriented x3 Neck Neck: Yes no lymphadenopathy Resp Auscultation: clear to auscultation bilaterally Cardio Rhythm: regular rhythm GI Other: Ileostomy on the right side Palpation (GI): Soft to palpation, nontender and no guarding Neuro General: patient oriented x3 Assessment & Plan Assessment & Plan (1) Ileostomy in place: Code(s): Z93.2 - Ileostomy status Category: Medical Plan: He has a protective loop ileostomy after sigmoid resection for a diverticular abscess last January,. He is currently doing very well He has never had any colonoscopy in the past. I am going to schedule her for colonoscopy prior to reversal of his loop ileostomy. I explained to him the technique of the colonoscopy. I reviewed the risks including but not limited to bleeding and perforation, as well as the benefits and alternatives. He says he understands and wants to proceed. I have also counseled him on the benefits of weight loss. He does not need bowel prep for his colonoscopy as he is diverted currently. Coding Level of Care Code Est Pt Level 3 (67472) Diagnoses Ileostomy in place Z93.2
[2025-04-03 09:29] VITALS: BP 135/81; PULSE 77; BMI 37.2
== END 2025-04-03 09:40 | disposition home or self-care (01) ==
LOC: HO.HGS 09:21
PROVIDERS: Visit Provider Surgery
DX: Z93.2 Ileostomy status (principal)
CPT/HCPCS: 99024

== ENCOUNTER → 2025-04-03 09:20 | Outpatient (BNVA) | payer OTHER, SELFPAY | PROVIDERS: Visit Provider Surgery | DX: K57.20 Diverticulitis of large intestine with perforation and abscess without bleeding (principal); Z93.2 Ileostomy status | CPT/HCPCS: 99212 ==

== ENCOUNTER 2025-05-10 06:42 | Day surgery (SDC) | payer OTHER, SELFPAY ==
[2025-05-08 09:24] VITALS: BMI 37.2
--- NOTE | 2025-05-08 10:23 | HO.ANESPROP2 ---
Documented by User: Adelaida Rios NP 05/08/25 10:24 HPI - Anesthesia Eval Consult details Narrative: 44 yr old male for colonoscopy with possible polypectomy Has protective loop ileostomy after sigmoid resection for a diverticular abscess last January, [facility] Active Problems Active Problems: All Active Problems (Updated 03/01/25 @ 14:39 by Fernando Pineda MD) Ileostomy in place (Acute) Colonic diverticular abscess (Acute) Past Medical History Medical History Colonic diverticular abscess Family History Family history of problems with anesthesia: No Surgical History Surgical History History of back surgery History of bowel resection (02/07/25) History of Problems with Anesthesia: Yes Social History Social History Household Members: Significant Other Housing: House Do you presently have visiting nurse or other home services: No Patient Tobacco Use Status: Former Tobacco user Tobacco use type: Cigarette e-Cigarette/Vaping Use: Former Use Substance Use Type: Marijuana Advance Directives: No Advance Directives Information Provided: Yes Advance Directives on File: No service: No Meds Allergies Allergy/AdvReac Type Severity Reaction Status Date / Time No Known Allergies Allergy Verified 04/03/25 09:29 Home Medications ?Medication ?Instructions ?Recorded ?Confirmed ?Last Taken ?Type ibuprofen 200 mg tablet 400 mg PO BID PRN Pain 02/03/25 04/03/25 Unknown History Exam Height,Weight and Vital Signs: Height 5 ft 11 in Weight 121.109 kg Assessment and Plan Final Anesthetic Review Family History of Problems with Anesthesia: No History of Problems with Anesthesia: Yes Documented by User: Jayde Joseph MD 05/10/25 07:32 [facility] Active Problems Active Problems: tAll Active Problems (Updated 03/01/25 @ 14:39 by Fernando Pineda MD) Ileostomy in place (Acute) Colonic diverticular abscess (Acute) Past Medical History Medical History Colonic diverticular abscess Surgical History Surgical History History of back surgery History of bowel resection (02/07/25) Social History Social History Household Members: Significant Other Housing: House Do you presently have visiting nurse or other home services: No Patient Tobacco Use Status: Former Tobacco user Tobacco use type: Cigarette e-Cigarette/Vaping Use: Former Use Substance Use Type: Marijuana Advance Directives: No Advance Directives Information Provided: Yes Advance Directives on File: No service: No Meds Allergies Allergy/AdvReac Type Severity Reaction Status Date / Time No Known Allergies Allergy Verified 04/03/25 09:29 Home Medications ?Medication ?Instructions ?Recorded ?Confirmed ?Last Taken ?Type ibuprofen 200 mg tablet 400 mg PO BID PRN Pain 02/03/25 04/03/25 Unknown History Exam Airway Mallampati Class: III TM Dist: >3cm Neck ROM: Full Loose/Missing/Broken Teeth: No Heart: RRR Lungs: CTA Assessment and Plan Assessment Anesthesia Assessment: Anesthesia Plan Discussed and Chart Reviewed Final Anesthetic Review NPO: Yes ASA Class: II Final Preanesthetic Review: Meds/Allgs Chart Reviewed, Consent Obtained/Reviewed and Anes Risks/Benef Reviewed Patient Risk: Low Procedure Risk: Low Anesthetic Plan Anesthetic Plan: MAC: Disposition: Standard PACU
[2025-05-10 07:03] VITALS: BP 134/87; PULSE 80; RESP 16; TEMP 36; O2SAT 96
[2025-05-10] MEDS: Lactated Ringers 1,000 ML 100 ML IVCONT (07:03)
--- NOTE | 2025-05-10 07:17 | MHC.SHP ---
Pre-Procedural Eval Section A - 24 Hr Update-Section A only Date of Service: 05/10/25 Section B - Complete if H&P > 30 days Chief Complaint: Ileostomy status Details of Present Illness: For colonoscopy prior to reversal of a diverting loop ileostomy Relevant Social History: None Present Medications: see Short Stay Collaborative assessment History of Previous Operations: Relevant previous surgery/procedure and date(s) (Previous sigmoid resection reanastomosis and diverting ileostomy) Allergies: Allergies Allergy/AdvReac Type Severity Reaction Status Date / Time No Known Allergies Allergy Verified 04/03/25 09:29 Review of Systems Sugical H&P ROS: Negative: Constitution, Cardiovascular, Respiratory and Gastrointestinal Exam Surgical H&P Exam: Normal: Heart and Normal: Lungs and Significant Findings: Abdomen (Has diverting loop ileostomy) Plan Diagnosis/Plan: Unchanged I have reviewed the history and physical and performed a pertinent physical examination on my patient. No changes have occurred unless specified. Time Spent With Patient Time: Total time managing care of this patient today ____ minutes.
--- NOTE | 2025-05-10 08:01 | W.PM.OPN ---
Operative Note Operative Note Date of Service: 05/10/25 Narrative: Preop diagnosis: Status post sigmoid resection, with a diverting loop ileostomy Postop diagnosis:1. Diverticulosis throughout the colon, occasional 2. Polyp, about 1 cm, relatively flat, at level 60 cm, removed with forceps 3. Diversion colitis Procedure: Colonoscopy with polypectomy using cold forceps x1 Surgeon: Fernando Pineda MD The patient is 44-year-old male who had undergone urgent sigmoid resection, diverting loop ileostomy for diverticular abscess last Dec, 2024. He is here for colonoscopy prior to reversal of his loop ileostomy. He understood the technique of the planned procedure as well as the risks, benefits, and alternatives. The patient was brought to the operating room and placed in left lateral decubitus position under monitored anesthesia care. A surgical time-out was done. A full digital rectal exam was done and this did not reveal any significant anal lesions. The tip of the Olympus colonoscope was gently introduced through the anal orifice advanced with insufflation all the way to the cecum. The cecum was intubated. The cecum was identified by visualization of the ileocecal valve as well as the appendiceal orifice. The cecal mucosa was unremarkable. The scope was gradually withdrawn with careful examination of the entire colonic mucosa being done with scope withdrawal. He had patches of diffuse erythema throughout the entire colon consistent with diversion colitis. There was note of a small polyp, relatively flat, about 1 cm in size, at level 60 cm. This was removed using multiple bites of cold forceps. There was scattered diverticulosis throughout the entire colon. The anastomosis was seen at level 10 cm. This appeared widely patent and intact. There was note of a small blind pouch adjacent to the anastomotic line The anal canal was unremarkable. The scope was then withdrawn completely with desufflation. The patient tolerated procedure well. There were no immediate complications. I am going to order for a enema test as well prior to reversing his ileostomy. Depending on the path report for the polyp, I may recommend another colonoscopy in the next 3-5 years.
[2025-05-10 08:06] VITALS: BP 108/65; PULSE 81; RESP 18; TEMP 36.1; O2SAT 96
[2025-05-10 08:15] VITALS: BP 108/65; PULSE 68; RESP 18; O2SAT 96
[2025-05-10 08:30] VITALS: BP 114/85; PULSE 75; RESP 18; O2SAT 97
== END 2025-05-10 08:58 | disposition home or self-care (01) ==
PROVIDERS: Visit Provider Surgery
PROC: 0DBE8ZZ Excision of Large Intestine, Via Natural or Artificial Opening Endoscopic (ICD-10-PCS; CPT 45380; principal; 2025-05-10 07:30)
DX: Z12.11 Encounter for screening for malignant neoplasm of colon (principal); D12.4 Benign neoplasm of descending colon; K57.30 Diverticulosis of large intestine without perforation or abscess without bleeding; K52.89 Other specified noninfective gastroenteritis and colitis; Z87.19 Personal history of other diseases of the digestive system; K91.2 Postsurgical malabsorption, not elsewhere classified; Z98.0 Intestinal bypass and anastomosis status; Z93.2 Ileostomy status; Z90.49 Acquired absence of other specified parts of digestive tract; Z98.890 Other specified postprocedural states; Z87.891 Personal history of nicotine dependence
CPT/HCPCS: 45380; 88305; J2003; J2704

== ENCOUNTER → 2025-05-10 06:42 | Outpatient (BNV) | payer OTHER, SELFPAY | PROVIDERS: Visit Provider Surgery | DX: K57.90 Diverticulosis of intestine, part unspecified, without perforation or abscess without bleeding (principal); K63.5 Polyp of colon; K52.9 Noninfective gastroenteritis and colitis, unspecified; Z93.2 Ileostomy status | CPT/HCPCS: 45380 ==

== ENCOUNTER 2025-05-23 09:42 | Outpatient (AMB) | payer OTHER, SELFPAY ==
--- NOTE | 2025-05-23 10:03 | A.OFFVIS_ITS ---
Vital Signs 05/23/25 10:12 Height 5 ft 11 in Weight 120 lb BMI 16.7 BP 132/84 Blood Pressure Location Lt brachial Position Sitting Pulse 78 Intake Visit Reasons: s/p colonoscopy Intake Note: This patient presents for post-op assessment status post Colonoscopy with polypectomy using cold forceps x1. 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 He had undergone assisted laparoscopic sigmoid resection, anastomosis, with a diverting loop ileostomy for sigmoid diverticulitis with a large intramural abscess last 02/07/2025. He is currently doing well. His loop ileostomy is functioning well. He has a good oral intake. He says he had skin some weight I had done his colonoscopy which was was his first colonoscopy last 05/10/2025. This showed 1 small polyp. This was removed and this was a serrated adenoma. He says he is ready to have his reversal of the loop ileostomy. [facility] Medical History (Updated 06/27/25 @ 11:26 by Fernando Pineda MD) Parastomal hernia Colonic diverticular abscess Surgical History History of colonoscopy with polypectomy (~05/10/25) History of back surgery History of bowel resection (02/07/25) Social History Household Members: Significant Other Housing: House Do you presently have visiting nurse or other home services: No Patient Tobacco Use Status: Former Tobacco user Tobacco use type: Cigarette e-Cigarette/Vaping Use: Former Use Substance Use Type: Marijuana service: No Review of Systems Const Denies chills and Denies fever(s) Card Denies chest pain, Denies dyspnea and Denies dyspnea on exertion Resp Denies cough, Denies dyspnea and Denies dyspnea on exertion GI Details: Loop ileostomy in place Denies hematochezia and Denies change in bowel habits Denies hematuria and Denies difficulty urinating Musc Denies back pain and Denies limited range of motion Neuro Denies focal weakness and Denies convulsions Psych Denies depression and Denies mood swings Physical Exam Vital Signs: Last Vital Signs Pulse 78 05/23/25 10:12 BP 132/84 05/23/25 10:12 BMI result Body Mass Index 16.7 Const General: comfortable and no acute distress Nutritional Appearance: obese Orientation/consciousness: patient oriented x3 Neck Neck: Yes no lymphadenopathy Resp Auscultation: clear to auscultation bilaterally Cardio Rhythm: regular rhythm GI Other: Loop ileostomy in place on the right side Palpation (GI): Soft to palpation, nontender and no guarding Neuro General: patient oriented x3 Assessment & Plan Assessment & Plan (1) Ileostomy in place: Code(s): Z93.2 - Ileostomy status Category: Medical Plan: I had done his colonoscopy and this revealed 1 small polyp which was a serrated adenoma. I told him I would probably recommend repeating the colonoscopy in 5 years because of the serrated adenoma. I am going to order for a barium enema study to check the rectosigmoid anastomosis for integrity as well as patency . If this is good, we will proceed with reversal of his loop ileostomy I had a long discussion with him about the technique of reversal of the loop ileostomy. I explained to him the risks including but not limited to bleeding, infections, anastomotic leak, injury to other bowel loops, inherent risks of anesthesia, obstruction, as well as the benefits and alternatives. I also explained to him what to expect postoperatively He understands and wants to proceed. I will call him after his barium enema study. Orders: Orders FL barium enema 05/30/25 Z93.2 - Ileostomy status Coding Level of Care Code Est Pt Level 3 (92881) Diagnoses Ileostomy in place Z93.2
[2025-05-23 10:12] VITALS: BP 132/84; PULSE 78; BMI 16.7
== END 2025-05-23 10:23 | disposition home or self-care (01) ==
LOC: HO.HGS 09:43
PROVIDERS: Visit Provider Surgery
DX: Z93.2 Ileostomy status (principal)
CPT/HCPCS: 99213

== ENCOUNTER → 2025-05-23 09:42 | Outpatient (BNVA) | payer OTHER, SELFPAY | PROVIDERS: Visit Provider Surgery | DX: Z01.818 Encounter for other preprocedural examination (principal); Z93.2 Ileostomy status | CPT/HCPCS: 99212 ==

== ENCOUNTER 2025-05-30 10:20 | Outpatient (REF) | payer OTHER, SELFPAY ==
--- NOTE | ~2025-05-30 | FL_ITS ---
EXAMINATION: XR BARIUM ENEMA CLINICAL INFORMATION: History of rectosigmoid anastomosis for reversal of the wording colostomy. COMPARISON: CT abdomen pelvis 02/05/2025. TECHNIQUE: A KUB is obtained. Subsequently retrograde barium enema was performed with a balloon inflated Alcantar's catheter. FINDINGS: On KUB the bowel gas pattern is nonspecific. Minimal stool seen in the right colon. FLUOROSCOPY TIME: Following retrograde administration of thin barium through a balloon inflated rectal catheter is normal flow seen through the rectum anastomotic sigmoid colon into the descending and transverse colon. No extravasation seen at the anastomotic site. There are few scattered diverticuli present in the distal sigmoid colon. Following deflating the balloon and retracting the catheter there is minimal evacuation of barium. No extravasation seen on the postevacuation images. DOSE AREA PRODUCT: 4225 uGy-m2 (microgray-meter squared) FL/FL barium enema IMPRESSION: Widely patent sigmoid anastomosis. No extravasation of barium seen to suspect any leak. Electronically signed by: Jayden Fall MD 05/30/2025 02:01 PM EDT
== END 2025-05-30 10:21 | disposition home or self-care (01) ==
LOC: HO.XRAY 10:20
PROVIDERS: Visit Provider Surgery
DX: Z93.2 Ileostomy status (principal)
CPT/HCPCS: 74270

== ENCOUNTER → 2025-05-30 10:21 | Outpatient (BNV) | payer OTHER, SELFPAY | PROVIDERS: Visit Provider Radiology Diagnostic Radiology | DX: K63.89 Other specified diseases of intestine (principal) | CPT/HCPCS: 74270 ==

== ENCOUNTER 2025-06-27 11:02 | Outpatient (AMB) | payer OTHER, SELFPAY ==
[2025-06-27 11:05] VITALS: BMI 36.9
--- NOTE | 2025-06-27 11:05 | A.OFFVIS_ITS ---
Vital Signs 06/27/25 11:05 Height 5 ft 11 in Weight 264 lb 8 oz BMI 36.9 Intake Visit Reasons: ? ba-stomal hernia Intake Note: Patient presents for an assessment for possible ba-stomal hernia. Pt c/o; reports he had a chest cold last week and was coughing, during one of the coughing episodes he noticed a bulge the size of a grapefruit, reports it is still painful when coughing and he feels the pain is near the ribs on the right side and periumbilical. Hypo Dipper Required: No Accompanied by: Family/Other Allergies No Known Allergies Allergy (Verified 06/27/25 11:12) HPI HPI ? ba-stomal hernia: Details: 44-year-old male here for a follow-up. He had undergone assisted laparoscopic sigmoid resection, anastomosis, with a diverting loop ileostomy for sigmoid diverticulitis with a large intramural abscess last 02/07/2025. He is currently doing well. His loop ileostomy is functioning well. He has a good oral intake. He says he had gained some weight. I had done his colonoscopy, which was was his first colonoscopy, last 05/10/2025. This showed 1 small polyp. This was removed and this was a serrated adenoma. He also had his barium enema test I reviewed the images with the radiologist. This shows that the anastomosis in the rectosigmoid appears to have patent and intact without any leak. He does state that he has developed a parastomal hernia. His stoma has cont inued to function well. [facility] Medical History (Updated 07/09/25 @ 08:21 by Aysha Lui RN) Back pain Parastomal hernia Colonic diverticular abscess Surgical History (Updated 07/09/25 @ 08:21 by Aysha Lui RN) History of excision of pilonidal cyst History of colonoscopy with polypectomy (~05/10/25) History of back surgery History of bowel resection (02/07/25) Social History Household Members: Significant Other Housing: House Are you a primary health care facilities inspector to a significant other at home: No Do you presently have visiting nurse or other home services: No Patient Tobacco Use Status: Former Tobacco user Tobacco use type: Cigarette e-Cigarette/Vaping Use: Former Use Use of substances other than those prescribed or required for medical reasons: Yes Substance Use Type: Marijuana Substance Use Frequency: Daily Have you been hit, kicked, punched, or otherwise hurt by someone within the past year? If so, by whom?: No Are you DNR?: No Advance Directives: No Advance Directives Information Provided: No Advance Directives on File: No service: No Review of Systems Const Denies chills and Denies fever(s) Card Denies chest pain, Denies dyspnea and Denies dyspnea on exertion Resp Denies cough, Denies dyspnea and Denies dyspnea on exertion GI Details: Has loop ileostomy on the right Denies hematochezia and Denies change in bowel habits Denies hematuria and Denies difficulty urinating Musc Denies back pain and Denies limited range of motion Neuro Denies focal weakness and Denies convulsions Psych Denies depression and Denies mood swings Physical Exam Vital Signs: BMI result Body Mass Index 36.9 Const General: comfortable and no acute distress Orientation/consciousness: patient oriented x3 Neck Neck: Yes no lymphadenopathy Resp Auscultation: clear to auscultation bilaterally Cardio Rhythm: regular rhythm GI Other: Ileostomy in place in the right side Palpation (GI): Soft to palpation, nontender and no guarding Neuro General: patient oriented x3 Assessment & Plan Assessment & Plan (1) Ileostomy in place: Code(s): Z93.2 - Ileostomy status Category: Medical Plan: I have reviewed with a barium enema study and this shows that the anastomosis is patent and intact. I had a long discussion with him about the technique of reversal of the loop ileostomy. I explained to him the risks including but not limited to bleeding, infections, anastomotic leak, injury to other bowel loops, inherent risks of anesthesia, obstruction, as well as the benefits and alternatives. I also explained to him what to expect postoperatively. He understands and wants to proceed. He is morbidly obese. I did explain to him the benefits of weight loss with regards to his perioperative risks. (2) Parastomal hernia: Code(s): K43.5 - Parastomal hernia without obstruction or gangrene Category: Medical Plan: He has a parastomal hernia but there is no evidence of obstruction. This will be repaired along with history of his ileostomy. Coding Level of Care Code Est Pt Level 3 (18948) Diagnoses Ileostomy in place Z93.2 Parastomal hernia K43.5
== END 2025-06-27 11:39 | disposition home or self-care (01) ==
LOC: HO.HGS 11:03
PROVIDERS: Visit Provider Surgery
DX: Z93.2 Ileostomy status (principal); K43.5 Parastomal hernia without obstruction or gangrene
CPT/HCPCS: 99213

== ENCOUNTER → 2025-06-27 11:02 | Outpatient (BNVA) | payer OTHER, SELFPAY | PROVIDERS: Visit Provider Surgery | DX: K43.5 Parastomal hernia without obstruction or gangrene (principal); Z93.2 Ileostomy status | CPT/HCPCS: 99212 ==

== ENCOUNTER 2025-07-30 07:14 | Inpatient (IN) | payer OTHER, SELFPAY ==
[2025-07-09 08:36] VITALS: BMI 36.3
--- NOTE | 2025-07-09 10:31 | HO.ANESPROP2 ---
Documented by User: Allison Dexter NP 07/09/25 10:34 HPI - Anesthesia Eval Consult details Narrative: 44yo M for Reversal of Loop Ileostomy,possible Laparotomy, 07/30/25 s/p sigmoid resection for a diverticular abscess 01/2025 [facility] Active Problems Active Problems: All Active Problems Ileostomy in place (Acute) Parastomal hernia (Acute) Colonic diverticular abscess (Acute) Past Medical History Medical History Back pain Parastomal hernia Colonic diverticular abscess Family History Family history of problems with anesthesia: No Surgical History Surgical History History of excision of pilonidal cyst History of colonoscopy with polypectomy (~05/10/25) History of back surgery History of bowel resection (02/07/25) History of Problems with Anesthesia: Yes Social History Social History Household Members: Significant Other Housing: House Are you a primary day care worker to a significant other at home: No Do you presently have visiting nurse or other home services: No Patient Tobacco Use Status: Former Tobacco user Tobacco use type: Cigarette e-Cigarette/Vaping Use: Former Use Use of substances other than those prescribed or required for medical reasons: Yes Substance Use Type: Marijuana Substance Use Frequency: Daily Have you been hit, kicked, punched, or otherwise hurt by someone within the past year? If so, by whom?: No Are you DNR?: No Advance Directives: No Advance Directives Information Provided: No Advance Directives on File: No service: No Meds Allergies Allergy/AdvReac Type Severity Reaction Status Date / Time No Known Allergies Allergy Verified 06/27/25 11:12 Home Medications ?Medication ?Instructions ?Recorded ?Confirmed ?Last Taken ?Type No Known Home Meds 07/30/25 07/30/25 Unknown History Exam Height,Weight and Vital Signs: Height 5 ft 11 in Weight 117.934 kg Pertinent Lab Results Pertinent Lab Results: Laboratory Tests 02/08/25 05:41 WBC 11.5 H Hgb 13.4 L Hct 38.2 L Plt Count 349 Sodium 136 Potassium 3.6 Chloride 103 Carbon Dioxide 24 BUN 7 L Creatinine 0.67 Assessment and Plan Assessment Anesthesia Assessment: Chart Reviewed Final Anesthetic Review Family History of Problems with Anesthesia: No History of Problems with Anesthesia: Yes Documented by User: Gianfranco Fernandez MD 07/30/25 07:16 [facility] Past Medical History Medical History Back pain Parastomal hernia Colonic diverticular abscess Surgical History Surgical History History of excision of pilonidal cyst History of colonoscopy with polypectomy (~05/10/25) History of back surgery History of bowel resection (02/07/25) Social History Social History Household Members: Significant Other Housing: House Are you a primary day care worker to a significant other at home: No Do you presently have visiting nurse or other home services: No Patient Tobacco Use Status: Former Tobacco user Tobacco use type: Cigarette e-Cigarette/Vaping Use: Former Use Use of substances other than those prescribed or required for medical reasons: Yes Substance Use Type: Marijuana Substance Use Frequency: Daily Have you been hit, kicked, punched, or otherwise hurt by someone within the past year? If so, by whom?: No Are you DNR?: No Advance Directives: No Advance Directives Information Provided: No Advance Directives on File: No service: No Meds Allergies Allergy/AdvReac Type Severity Reaction Status Date / Time No Known Allergies Allergy Verified 06/27/25 11:12 Home Medications ?Medication ?Instructions ?Recorded ?Confirmed ?Last Taken ?Type No Known Home Meds 07/30/25 07/30/25 Unknown History Exam Exam Date and Time: 07/30/25 Airway Mallampati Class: II TM Dist: >3cm Neck ROM: Full Heart: rrr Lungs: ctab vesicular Assessment and Plan Final Anesthetic Review NPO: Yes ASA Class: II Final Preanesthetic Review: No Changes in Pt Med Stat, Meds/Allgs Chart Reviewed, Consent Obtained/Reviewed and Anes Risks/Benef Reviewed Patient Risk: Low Procedure Risk: Low Anesthetic Plan Anesthetic Plan: GA Disposition: Standard PACU
[2025-07-30] VITALS (17 sets, daily range): BP systolic 118–156; BP diastolic 72–101; PULSE 75–92; RESP 10–20; TEMP 36.1–36.9; O2SAT 92–97; BMI 35.7; BMI 37.8
[2025-07-30] MEDS: Lactated Ringers 1,000 ML 100 ML IVCONT ×3 (06:35→21:16)
--- NOTE | 2025-07-30 07:14 | MHC.SHP ---
Pre-Procedural Eval Section A - 24 Hr Update-Section A only Date of Service: 07/30/25 The patient is an INPATIENT: No Changes since office visit: No Cold of Flu in the past 2 weeks, No New Medical Problems, No Changes in Medication and No Patient answered all questions The patient has been examined within 24 hours of the surgical procedure. The History & Physical has been completed within 30 days and I have reviewed it.: Yes Section B - Complete if H&P > 30 days Chief Complaint: Ileostomy status,Parastomal hernia without obstruc Allergies: Allergies Allergy/AdvReac Type Severity Reaction Status Date / Time No Known Allergies Allergy Verified 06/27/25 11:12 Plan I have reviewed the history and physical and performed a pertinent physical examination on my patient. No changes have occurred unless specified. Time Spent With Patient Time: Total time managing care of this patient today ____ minutes.
--- NOTE | 2025-07-30 08:10 | PHA.MEDREC ---
Pharmacy Consult ? Medication Reconciliation Pharmacy has reviewed the medication reconciliation completed by nursing.
--- NOTE | 2025-07-30 08:54 | W.PM.OPN ---
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 He understood the technique of the planned procedure and he was aware risks, benefits, alternatives He was brought to the operating. He was placed supine under general anesthesia via endotracheal tube. I proceeded to close both efferent and afferent limbs of the loop ileostomy with a running Polysorb 3-0 stitch. The abdomen was prepped and draped in the usual sterile fashion. A surgical time-out was done. The patient received cefazolin 2 g IV preoperatively I infiltrated the planned line of incision with lidocaine 1%. I made an elliptical incision on the ileostomy site using blade 15. This was carried down through the full-thickness of the skin and subcutaneous fat with electrocautery down to the fascia. We proceeded to gently identify the interface between the fascial edge and the bowel loops. After identifying this, I used sharp dissection with Metzenbaum scissors to open up the plane between the bowel loop in the area. I was then able to apply a Rolando clamp at the fascial edge. By following this, I continued to sharply dissect the efferent and afferent limbs of the ileostomy loop off of the fascial defect. There was note of significant adhesions surrounding the area in view of what a parastomal hernia. We carefully lysed this Metzenbaum scissors and electrocautery. Extensive lysis of adhesions had to be done with Metzenbaum scissors as well as electrocautery in view of adhesions to the hernia sac. We dissected circumferentially around the fascial defect until we are able to completely free up the entire loop We pulled this loop up into the field. I then proceeded to create a mesenteric window on both the efferent and afferent limbs just below the stoma level. I resected these limbs with RAMÓN 60 mm staplers. I completed transection of the stoma by serially dividing and ligating the attached mesentery. This was sent as a specimen . Once hemostasis on the divided mesentery was confirmed, I proceeded to do the [id number] anastomosis. I opened up the apex of each staple line on the efferent and afferent limbs with curved Walker scissors. I entered the lumen. I positioned each arm of the RAMÓN 60 mm stapler the anti mesenteric side of each limb. I made sure that there were no bowel loops caught between the efrain. The stapler was fired to create our [id number] anastomosis. The anastomosis was completed by closing the enterotomy with a TA 60 mm stapler. The anastomosis felt patent and intact between my index finger and the thumb on palpation. I applied seromuscular sutures on the edge of the staple line to release any tension using Polysorb 3-0 sutures . Examination of the staple line showed this to be well vascularized and intact. The mesentery also appeared to have adequate hemostasis I then proceeded to reduce this entire loop the fascial defect in the back into the peritoneal cavity. Once this was achieved, I proceeded to then close the fascia with a Maxon 1 stitch. I copiously irrigated the subcutaneous layer. We changed gloves. The skin incision was closed loosely with efrain. Iodoform packing was placed in between the skin efrain into the subcutaneous layer Dressings were applied. A TAP block was done by the anesthesiologist. The procedure was completed. The patient tolerated the procedure well. There were no immediate complications. Initial and final counts of sponges and instruments were correct. Estimated blood loss was about 25 cc The patient was extubated without difficulty and transferred to the recovery room with stable vital signs.
--- NOTE | 2025-07-30 14:41 | PM.EVENT ---
Event Note Date of Service: 07/30/25 Event Note: Seen postop Sitting on recliner Appears to have adequate pain control now although required additional doses of narcotics earlier Stable vital signs Abdomen is soft , benign Dressings dry Pain management Await full return of GI functions Significant other updated by phone Time Spent With Patient Time: Total time managing care of this patient today ____ minutes.
--- NOTE | 2025-07-30 17:03 | PC.NURSE ---
Patient doing well, vomit x 2, encouraged sips of clears, ambulating the hallway, made a low fall risk.
[2025-07-30] MEDS: oxyCODONE HCl Immed Release 5 MG TABLET 10 MG PO (22:05)
[2025-07-31] MEDS: oxyCODONE HCl Immed Release 5 MG TABLET 10 MG PO ×4 (03:17→22:54)
[2025-07-31 04:00] VITALS: BP 107/57; PULSE 75; RESP 19; TEMP 36.7; O2SAT 93
[2025-07-31] MEDS: Lactated Ringers 1,000 ML 100 ML IVCONT (06:59)
--- NOTE | 2025-07-31 07:06 | P.PNGS_ITS ---
Subjective Subjective Date of Service: 07/31/25 <Erin Card - Last Filed: 07/31/25 07:26> 07/31/25 <Fernando Pineda MD - Last Filed: 07/31/25 08:00> 07/31/25 <Sera Beck PA-C - Last Filed: 07/31/25 08:22> Interval history: Patient is POD1 s/p loop ileostomy reversal. Pain well controlled on medications. Denies nausea and vomiting currently. Tolerating liquids. Voiding. No BM or flatus. OOB and using incentive spirometry Denies fever, chills, and SOB. <Erin Card - Last Filed: 07/31/25 07:26> Physical Exam Vital Signs: Vital Signs: Last Vital Signs Temp 98.0 F 07/31/25 04:00 Pulse 75 07/31/25 04:00 Resp 19 07/31/25 04:00 BP 107/57 L 07/31/25 04:00 Pulse Ox 93 07/31/25 04:00 O2 Del Method Room Air 07/31/25 04:00 O2 Flow Rate 2 07/30/25 10:10 BMI result Body Mass Index 37.8 <Erin Card - Last Filed: 07/31/25 07:26> Const: General: healthy appearing, alert and awake; No acute distress <Erin Card - Last Filed: 07/31/25 07:26> Resp: Effort & Inspection: normal respiratory effort and able to speak in complete sentences <Erin Card - Last Filed: 07/31/25 07:26> Cardio: Rate: regular rate (on palpation of distal pulses) <Erin Card - Last Filed: 07/31/25 07:26> Rhythm: regular rhythm (on palpation of distal pulses) <Erin Card - Last Filed: 07/31/25 07:26> GI: Other: Inspection- dressings clean, dry and intact Palpation- soft, moderate distension, no guarding or rigidity Percussion - tympanic to percussion <Erin Card - Last Filed: 07/31/25 07:26> Other: Inspection- dressings clean, dry and intact some staining of dressing Palpation- soft, moderate distension, no guarding or rigidity Percussion - tympanic to percussion <Sera Beck PA-C - Last Filed: 07/31/25 08:22> Objective Data Active Medications Calcium Carbonate (Calcium Carbonate 750 Mg Tab.Chew) 750 mg PO Q4H PRN PRN Reason: Heartburn Heparin Sodium (Porcine) (Heparin Sodium,Porcine 5,000 Unit/Ml Vial) 5,000 unit SUBCUT Q8H [facility] Hydromorphone HCl (Hydromorphone Hcl 1 Mg/Ml Syringe) 0.5 mg IVPUSH Q3H PRN; Protocol PRN Reason: Pain, Severe (Pain Scale 7-10) Last Admin: 07/31/25 05:57 Dose: 0.5 mg Documented By: SHANNAN Lactated Ringer's (Lr) 1,000 mls @ 100 mls/hr IVCONT .Q10H [facility] Last Admin: 07/31/25 06:59 Dose: 100 mls/hr Documented By: SHANNAN Acetaminophen (Ofirmev) 1,000 mg in 100 mls @ 400 mls/hr IV Q6H [facility] Last Infusion: 07/31/25 05:59 Dose: Infused Documented By: SHANNAN Magnesium Hydroxide (Milk Of Magnesia 30 Ml Oral.Susp) 30 ml PO DAILY PRN PRN Reason: Constipation Melatonin (Melatonin 3 Mg Tablet) 6 mg PO BEDTIME PRN PRN Reason: Insomnia Metoclopramide HCl (Metoclopramide Hcl 10 Mg/2 Ml Vial) 10 mg IVPUSH Q8H PRN PRN Reason: Nausea and Vomiting Last Admin: 07/30/25 16:03 Dose: 10 mg Documented By: ANUPAMA Naloxone HCl (Naloxone Hcl 0.4 Mg/Ml Vial) 0.04 mg IVPUSH Q5M PRN PRN Reason: Excessive sedation or RR < 8 Ondansetron HCl (Ondansetron Hcl 4 Mg/2 Ml Vial) 4 mg IVPUSH Q8H PRN PRN Reason: Nausea and Vomiting Oxycodone HCl (Oxycodone Hcl Immed Release 5 Mg Tablet) 10 mg PO Q4H PRN PRN Reason: Pain, Moderate(Pain Scale 4-6) Last Admin: 07/31/25 07:00 Dose: 10 mg Documented By: SHANNAN Sodium Chloride (0.9 % Sodium Chloride Flush 3 Ml Syringe) 3 ml IVFLUSH QSHIFT [facility] Last Admin: 07/31/25 07:01 Dose: Not Given Documented By: SHANNAN Non-Admin Reason: IV Running <Erin Card - Last Filed: 07/31/25 07:26> Labs Labs: Laboratory Results - last 24 hr 07/30/25 06:30 Blood Type B Negative Antibody Screen NEGATIVE <Erin Card - Last Filed: 07/31/25 07:26> Procedures Date of Service Date of Service: 07/31/25 <Erin Card - Last Filed: 07/31/25 07:26> 07/31/25 <Fernando Pineda MD - Last Filed: 07/31/25 08:00> 07/31/25 <Sera Beck PA-C - Last Filed: 07/31/25 08:22> Progress Note: A&P Assessment and plan (1) Ileostomy in place: Status: Acute <Erin Card - Last Filed: 07/31/25 07:26> Assessment and Plan: Status post reversal of ileostomy Says he is ?okay? Denies flatus Tolerating clear liquids Abdomen is soft, benign, dressings dry Looks well overall Good vital signs Instructed to ambulate Await return of GI function Clinically doing Pain management Check labs Seen and examined independently <Fernando Pineda MD - Last Filed: 07/31/25 08:00> Assessment and Plan: POD1 s/p loop ileostomy reversal. Patient is doing well overall. VSS- HTN overnight likely due to pain, stable now. Voiding but not BM or flatus. Dressings clean dry and intact. Abdominal distension likely due to retained gas. Plan Continue pain regimen. Start Senna. Encourage continued OOB and incentive spirometry. <Erin Card - Last Filed: 07/31/25 07:26> POD1 s/p loop ileostomy reversal. Patient is doing well overall. VSS- HTN overnight likely due to pain, stable now. Voiding but not BM or flatus. Dressings clean dry and intact. Abdominal distension likely due to retained gas. Plan Continue pain regimen. Start Senna. Encourage continued OOB and incentive spirometry. POD #1 s/p loop ileostomy reversal. Had nausea/vomiting yesterday, improved this morning. Tolerated some liquids last night. ABd is distended this am. Cont clear liquids, encouraged OOB/ambulation to promote GI function. Refused IV tylenol and then received oxycodone an hour later- educated to continue scheduled tylenol to reduce narcotic load. Patient understands. Incentive spirometer 10x/hr. <Sera Beck PA-C - Last Filed: 07/31/25 08:22> Time Spent With Patient Time: Total time managing care of this patient today ____ minutes. <Erin Card - Last Filed: 07/31/25 07:26> Quality Stroke Does the patient have a stroke diagnosis?: No <Fernando Pineda MD - Last Filed: 07/31/25 08:00> VTE Prior VTE?: No <Fernando Pineda MD - Last Filed: 07/31/25 08:00> VTE Risk Level:: Medical - moderate - high <Erin Card - Last Filed: 07/31/25 07:26> VTE Device Contraindication: N/A - Device Ordered <Erin Card - Last Filed: 07/31/25 07:26> VTE Drug Contraindication: N/A - Med Ordered <Erin Card - Last Filed: 07/31/25 07:26>
[2025-07-31 07:27] VITALS: BP 114/62; PULSE 76; RESP 16; TEMP 37; O2SAT 94
--- NOTE | 2025-07-31 09:38 | HO.POSTANES ---
Post Anesthesia Evaluation Post Anesthesia Evaluation Date of Service: 07/31/25 Vital Signs: Vital Signs Temp Pulse Resp BP Pulse Ox O2 Del Method 07/31/25 07:27 98.6 F 76 16 114/62 94 Room Air 07/31/25 04:00 98.0 F 75 19 107/57 L 93 Room Air Anesthesia: Nerve Block and General Mental Status: Awake Pain Control: Satisfactory Nausea/Vomiting: None Hydration: Adequate Anesthesia-Related Issues: No Anes. Related Issues
[2025-07-31 09:57] LABS: Hematocrit 42.9 % (42.0-52.0); Hemoglobin 15.2 g/dl (14.0-18.0); Mean Corpuscular HGB Conc 35.4 g/dl (31.0-36.0); Mean Corpuscular Hemoglobin 31.9 pg (27.0-33.0); Mean Corpuscular Volume 90.1 fL (80.0-98.0); NRBC Abs Auto 0.000 X10*3/uL (0.0-0.012); NRBC Pct Auto 0.0 /100WBC (0.0-0.2); Platelet Count 276 X10*3/uL (160-400); Red Blood Count 4.76 X10*6/uL (4.60-5.80); White Blood Count 11.6 X10*3/uL (4.8-10.8)
[2025-07-31 10:09] LABS: Anion Gap 12 (12-20); Blood Urea Nitrogen 12 mg/dL (9-16); Calcium 8.8 mg/dL (8.4-10.2); Carbon Dioxide 25 mmol/L (22-29); Chloride 104 mmol/L (96-108); Creatinine Clr Calc Pharmacy 163.0; Estimated Glomerular Filt Rate > 60; Potassium 3.6 mmol/L (3.3-5.1); Sodium 137 mmol/L (135-145)
--- NOTE | 2025-07-31 15:09 | MHC.CM.PN ---
PATIENT LIVES IN A HOME W/ HIS MOTHER AND GIRLFRIEND. INDEPENDENT W/ ALL CARE. REPORTS PCP IS HECTOR MORAES NO HCP. CM PROVIDED EDUCATION AND OFFERED ASSISTANCE. PATIENT DECLINED. DP: HOME SELF CARE. GIRLFRIEND TO TRANSPORT. CM WILL CONTINUE TO FOLLOW.
[2025-07-31 15:29] VITALS: BP 131/76; PULSE 76; RESP 18; TEMP 37.1; O2SAT 95
--- NOTE | 2025-07-31 15:44 | PM.EVENT ---
Event Note Date of Service: 07/31/25 Event Note: Seen earlier on afternoon rounds Describes occasional pain, consistent with the postop course He says that he has passed a bowel movement and a small amounts, as well as some flatus earlier Abdomen is soft Stable vital signs I have instructed him to ambulate down the hallway Pain management Encouraged to try to decrease narcotic dose Plan to remove packing tomorrow Await more consistent flatus then advance diet Time Spent With Patient Time: Total time managing care of this patient today ____ minutes.
[2025-07-31 20:00] VITALS: BP 142/80; PULSE 80; RESP 18; TEMP 36.3; O2SAT 93
[2025-08-01] MEDS: Lactated Ringers 1,000 ML 100 ML IVCONT (01:19)
[2025-08-01 03:48] VITALS: BP 135/60; PULSE 78; RESP 18; TEMP 36.2; O2SAT 93
--- NOTE | 2025-08-01 07:01 | P.PNGS_ITS ---
Subjective Subjective Date of Service: 08/01/25 <Erin Card - Last Filed: 08/01/25 07:15> 08/01/25 <Sera Beck PA-C - Last Filed: 08/01/25 07:45> 08/01/25 <Fernando Pineda MD - Last Filed: 08/01/25 07:58> Interval history: Pain improved from yesterday. Reports nausea with meal yesterday which was relieved by BM. More flatus and increased BM yesterday. Denies fever and cills. OOB. <Erin Card - Last Filed: 08/01/25 07:15> Physical Exam 2 Vital Signs: Vital Signs: Last Vital Signs Temp 97.1 F 08/01/25 03:48 Pulse 78 08/01/25 03:48 Resp 18 08/01/25 03:48 BP 135/60 08/01/25 03:48 Pulse Ox 93 08/01/25 03:48 O2 Del Method Room Air 08/01/25 03:48 O2 Flow Rate 2 07/30/25 10:10 BMI result Body Mass Index 37.8 <Erin Card - Last Filed: 08/01/25 07:15> Const: General: alert, awake and tired appearing; No in distress <Erin Card - Last Filed: 08/01/25 07:15> Orientation/consciousness: patient oriented x3 <Sera Beck PA-C - Last Filed: 08/01/25 07:45> Resp: Effort & Inspection: normal respiratory effort and able to speak in complete sentences <Erin Card - Last Filed: 08/01/25 07:15> Cardio: Rate: regular rate <Erin Card - Last Filed: 08/01/25 07:15> Rhythm: regular rhythm <Erin Clarke - Last Filed: 08/01/25 07:15> GI: Other: Inspection: dressings clean, dry and intact Percussion: normal to percussion Palpation: soft, non-distended, tenderness around incision site <Erin Card - Last Filed: 08/01/25 07:15> Other: Inspection: dressings clean, dry and intact Percussion: normal to percussion Palpation: soft, non-distended, tenderness around incision site incision- wound regi removed, some serosanguineous drainage, no erythema <Sera Beck PA-C - Last Filed: 08/01/25 07:45> Skin: General skin exam: no rashes or lesions noted <Sera Beck PA-C - Last Filed: 08/01/25 07:45> Neuro: General: patient oriented x3 and moves all extremities <Sera Beck PA-C - Last Filed: 08/01/25 07:45> Objective Data Active Medications Calcium Carbonate (Calcium Carbonate 750 Mg Tab.Chew) 750 mg PO Q4H PRN PRN Reason: Heartburn Heparin Sodium (Porcine) (Heparin Sodium,Porcine 5,000 Unit/Ml Vial) 5,000 unit SUBCUT Q8H [facility] Last Admin: 08/01/25 06:24 Dose: 5,000 unit Documented By: ANJELICA Hydromorphone HCl (Hydromorphone Hcl 1 Mg/Ml Syringe) 0.5 mg IVPUSH Q3H PRN; Protocol PRN Reason: Pain, Severe (Pain Scale 7-10) Last Admin: 07/31/25 05:57 Dose: 0.5 mg Documented By: SHANNAN Lactated Ringer's (Lr) 1,000 mls @ 100 mls/hr IVCONT .Q10H [facility] Last Admin: 08/01/25 01:19 Dose: 100 mls/hr Documented By: ANJELICA Acetaminophen (Ofirmev) 1,000 mg in 100 mls @ 400 mls/hr IV Q6H [facility] Last Infusion: 08/01/25 06:45 Dose: Infused Documented By: MARIAN Magnesium Hydroxide (Milk Of Magnesia 30 Ml Oral.Susp) 30 ml PO DAILY PRN PRN Reason: Constipation Melatonin (Melatonin 3 Mg Tablet) 6 mg PO BEDTIME PRN PRN Reason: Insomnia Metoclopramide HCl (Metoclopramide Hcl 10 Mg/2 Ml Vial) 10 mg IVPUSH Q8H PRN PRN Reason: Nausea and Vomiting Last Admin: 07/30/25 16:03 Dose: 10 mg Documented By: ANUPAMA Naloxone HCl (Naloxone Hcl 0.4 Mg/Ml Vial) 0.04 mg IVPUSH Q5M PRN PRN Reason: Excessive sedation or RR < 8 Ondansetron HCl (Ondansetron Hcl 4 Mg/2 Ml Vial) 4 mg IVPUSH Q8H PRN PRN Reason: Nausea and Vomiting Oxycodone HCl (Oxycodone Hcl Immed Release 5 Mg Tablet) 10 mg PO Q4H PRN PRN Reason: Pain, Moderate(Pain Scale 4-6) Last Admin: 07/31/25 22:54 Dose: 10 mg Documented By: ANJELICA Sodium Chloride (0.9 % Sodium Chloride Flush 3 Ml Syringe) [facility] Last Admin: 08/01/25 06:50 Dose: Not Given Documented By: MARIAN Non-Admin Reason: IV Running <Erin Card - Last Filed: 08/01/25 07:15> Labs CBC & Chem 7: 07/31/25 09:19 07/31/25 09:19 <Erin Card - Last Filed: 08/01/25 07:15> Labs: Laboratory Results - last 24 hr 07/31/25 09:19 MCV 90.1 MCH 31.9 MCHC 35.4 RDW 12.5 Plt Count 276 MPV 10.6 Absolute Nucleated RBC 0.000 Nucleated RBC % (auto) 0.0 Anion Gap 12 Estim Creat Clear Calc 163.0 Estimated GFR > 60 Random Glucose 118 H Calcium 8.8 <Erin Card - Last Filed: 08/01/25 07:15> Procedures Date of Service Date of Service: 08/01/25 <Erin Card - Last Filed: 08/01/25 07:15> 08/01/25 <Sera Beck PA-C - Last Filed: 08/01/25 07:45> 08/01/25 <Fernando Pineda MD - Last Filed: 08/01/25 07:58> Progress Note: A&P Assessment and plan (1) Status post reversal of ileostomy: Status: Acute <Erin Card - Last Filed: 08/01/25 07:15> Assessment and Plan: Passing more flatus and BMs Much better pain control Abdomen is soft Has been tolerating clear liquids well Ambulating Advance diet as tolerated We will re-evaluate later today Seen and examined independently <Fernando Pineda MD - Last Filed: 08/01/25 07:58> Assessment and Plan: POD #2 s/p ileostomy reversal. Patient is doing well overall. Pain improved from yesterday on PO pain medications. Dressings clean dry and intact. Increased BM and flatus. Advance diet today. Continue PO pain management. Continue DVT prophylaxis. OOB and incentive spirometry. <Erin Card - Last Filed: 08/01/25 07:15> POD #2 s/p ileostomy reversal. Patient is doing well overall. Pain improved from yesterday on PO pain medications. Dressings clean dry and intact. Increased BM and flatus. Advance diet today. Continue PO pain management. Continue DVT prophylaxis. OOB and incentive spirometry. Agree with above assessment and plan by Kyaw MS-3. POD #2 s/p ileostomy reversal. DOing overall well post op, now with multiple liquid BMs. Tolerating clears. Abd benign with appropriate post op tenderness, soft, incision clean and packing removed. Will advance to solid diet. Dc IV tylenol. Home later today if tolerating solid diet and pain remains well controlled. patient comfortable with plan. OOB/ambulation encouraged. <Sera Beck PA-C - Last Filed: 08/01/25 07:45> Time Spent With Patient Time: Total time managing care of this patient today ____ minutes. <Erin Card - Last Filed: 08/01/25 07:15> Quality Stroke Does the patient have a stroke diagnosis?: No <Erin Card - Last Filed: 08/01/25 07:15> VTE Prior VTE?: No <Erin Card - Last Filed: 08/01/25 07:15> VTE Risk Level:: Medical - moderate - high <Erin Card - Last Filed: 08/01/25 07:15> VTE Device Contraindication: N/A - Device Ordered <Erin Card - Last Filed: 08/01/25 07:15> VTE Drug Contraindication: N/A - Med Ordered <Erin Card - Last Filed: 08/01/25 07:15>
[2025-08-01 08:00] VITALS: BP 134/78; PULSE 75; RESP 18; TEMP 36.4; O2SAT 94
--- NOTE | 2025-08-01 13:48 | MHC.CM.PN ---
Patient medically cleared for dc home self care via private transport.
--- NOTE | 2025-08-01 15:04 | P.DS_ITS ---
DS: Providers Provider Date of admission: 07/30/25 07:14 Date of discharge: 08/01/25 Primary care physician: Crys Ochoa PA-C Attending physician on admission: Fernando Pineda Attending physician on discharge: Fernando Pineda DS: Diagnosis Discharge Diagnosis (1) Status post reversal of ileostomy: Status: Acute DS: Summary Hospital Course Hospital Course: HPI AT ADMISSION: 44-year-old male who initially underwent sigmoid resection with colorectal end to end anastomosis, diverting loop ileostomy for diverticular abscess in January 2025, presenting today for reversal of ileostomy. HOSPITAL COURSE: On 07/30/25, Reversal of loop ileostomy, extensive lysis of adhesions was performed by Dr. Pineda without immediate complication. He was admitted post operatively for observation. He had an uncomplicated recovery course. He began to pass flatus on POD #1. He was ambulated and his activity was increased. He was advanced to solid diet on POD #2. He was reassessed later in the day and was tolerating a solid diet without nausea/vomiting, had good pain control on oral analgesics and was ambulating without difficulty. He was hemodynamically stable. His abdomen was benign with appropriate post op tenderness. His incision was clean and wound regi were removed, dry dressing placed. He was discharged to home on 08/01/25 in stable condition. He is to follow up in the office in 2 weeks for wound check. Status at Discharge Functional status at discharge: independent ambulation Time Attestation Discharge Coordination Time (in mins): 30 Quality: Safe Use of Opioids Does Pt have an Active Cancer Diagnosis on the Problem List?: No Quality: Stroke Does the patient have a stroke diagnosis?: No Physical Exam Vital Signs: Vital Signs: Last Vital Signs Temp 97.5 F 08/01/25 08:00 Pulse 75 08/01/25 08:00 Resp 18 08/01/25 08:00 BP 134/78 08/01/25 08:00 Pulse Ox 94 08/01/25 08:00 O2 Del Method Room Air 08/01/25 08:00 O2 Flow Rate 2 07/30/25 10:10 BMI result Body Mass Index 37.8 Const: General: comfortable, no acute distress and alert Orientation/consciousness: patient oriented x3 Resp: Effort & Inspection: normal respiratory effort and able to speak in complete sentences GI: Other: incision clean, efrain intact, packing removed, scant serosanguineous drainage soft, mild incisional tenderness Inspection: No distended Palpation (GI): no guarding Skin: General skin exam: no rashes or lesions noted Neuro: General: patient oriented x3 and moves all extremities DS: Data Data Completed and Pending Completed studies during hospitalization [Text1]: Pending at discharge 07/30/25 08:30 Surgical [PTH] Routine Procedures Bypass Ileum to Cutaneous, Open Approach (02/03/25) Excision of Sigmoid Colon, Percutaneous Endoscopic Approach, Hand-Assisted (02/03/25) Release Peritoneum, Open Approach (02/03/25) Discharge Plan Discharge Anticipated Discharge Date/Time: 08/01/25 15:00 Patient Disposition: Home, Self-Care Discharge Diagnosis: s/p ileostomy reversal Referrals: Fernando Pineda MD [Physician, General Surgery] - 2 Weeks Physician,Nydia Kauffman [Physician, Medical] - 1 Week Discharge Medications: New ibuprofen 600 mg tablet 600 mg PO Q6H PRN (Reason: pain) Qty: 30 0RF oxycodone-acetaminophen 5-325 mg tablet 1 tab PO Q6H PRN (Reason: pain) Qty: 25 0RF Rx Instructions: Partial Fill upon patient request. docusate sodium [Colace] 100 mg capsule 100 mg PO BID Qty: 60 2RF Discharge Orders: Discharge Order (Routine); Ordered 08/01/25 Ordered By: Fernando Pineda Diet: Advance to usual diet Activity on Discharge: No heavy lifting Stand Alone Forms: Patient Portal Discharge page Print Language: Wallisian Activity Restrictions/Additional Instructions: If the incision area is tender, you may apply an ice pack for short intervals (No more than 20 minutes on, followed by at least 20 minutes off). Do not apply heat. Do not use creams, lotions, or topical antibiotics. These can cause infection or allergic reaction. Ok to shower. You have efrain closing your incision and these will be removed approximately 10-14 days after surgery. You may have some drainage from the incision (yellow/red tinged fluid), this is normal and expected. Keep incision covered with gauze while it is draining and change daily. NO HEAVY LIFTING (>10lbs) or strenuous activity. Follow up in office with Dr. Pineda in 2 weeks. ([phone]) Call Your Doctor If: -Your temperature exceeds 101.5? F -You experience excessive pain or swelling -You have an unexpected reaction to medication -You have excessive bleeding -You experience continued vomiting/nausea -Your incision begins to separate -Your incision shows signs of infection such as increased redness, swelling, excessive pain, drainage (light blood or clear fluid is normal) or heat Care Plan Goals: Return to baseline health and resume normal activities following recovery period. Health Concerns: hx of perforated diverticulitis, ileostomy in place Plan of Treatment: s/p ileostomy reversal pain control Follow up in the office for wound check, efrain removal Assessment: Doing well post op. Discharge Date/Time: 08/01/25 14:28
--- NOTE | 2025-08-01 15:29 | PM.EVENT ---
Event Note Date of Service: 08/01/25 Event Note: Seen on early afternoon rounds earlier Continues to feel well Tolerating diet Has good flatus, had BMs Has good pain control he has been ambulating well Abdomen is soft and benign He says that he is ready to be discharged Discharge instructions reinforced with the patient We will see on follow up in the office Time Spent With Patient Time: Total time managing care of this patient today ____ minutes.
== END 2025-08-01 14:28 | disposition home or self-care (01) | DRG 223 ==
LOC: HO.SSSA 07:23 → HO.S3 10:07
PROVIDERS: Admitting Provider Surgery; Visit Provider Surgery
PROC: 0DSB0ZZ Reposition Ileum, Open Approach (ICD-10-PCS; CPT 44620; principal; 2025-07-30 07:30)
DX: Z43.2 Encounter for attention to ileostomy (principal); K43.5 Parastomal hernia without obstruction or gangrene; K66.0 Peritoneal adhesions (postprocedural) (postinfection); Z87.891 Personal history of nicotine dependence
CPT/HCPCS: 36415; 80048; 85027; 86850; 86900; 86901; 88304; J0131; J0690; J1100; J1171; J1644; J1885; J2003; J2250; J2270; J2405; J2704; J2765; J2795; J3010; J7120

== ENCOUNTER → 2025-07-30 07:14 | Outpatient (BNV) | payer OTHER, SELFPAY | PROVIDERS: Admitting Provider Surgery; Visit Provider Surgery | DX: Z93.2 Ileostomy status (principal) | CPT/HCPCS: 44625; 99238; 99499 ==

== ENCOUNTER 2025-08-12 10:12 | Outpatient (AMB) | payer OTHER, SELFPAY ==
--- NOTE | 2025-08-12 10:14 | A.OFFVIS_ITS ---
Vital Signs 08/12/25 10:20 Height 6 ft Weight 264 lb 6 oz BMI 35.9 Intake Visit Reasons: S/P reversal loop ileostomy possible laparotomy Intake Note: Patient presents for post-op assessment status post Reversal of loop ileostomy, extensive lysis of adhesions. Pt c/o; reports rectal pain, denies rectal discharge, reports pus like discharge from one of the incison, reports good appetite. Security Installation Technician Required: No Accompanied by: Spouse Allergies No Known Allergies Allergy (Verified 08/12/25 10:29) HPI HPI S/P reversal loop ileostomy possible laparotomy: Details: He had undergone reversal of his loop ileostomy last 07/30/2025. He tolerated the procedure well. He was discharged on postop day 2. He has good oral intake. He has good bowel movements and says he feels well overall. [facility] Medical History Back pain Parastomal hernia Colonic diverticular abscess Surgical History History of excision of pilonidal cyst History of colonoscopy with polypectomy (~05/10/25) History of back surgery History of bowel resection (02/07/25) Social History Household Members: Family Housing: House Are you a primary director of home care hospice to a significant other at home: No Do you presently have visiting nurse or other home services: No Patient Tobacco Use Status: Former Tobacco user Tobacco use type: Cigarette e-Cigarette/Vaping Use: Former Use Substance Use Type: Marijuana service: No Review of Systems Const Denies chills and Denies fever(s) Card Denies chest pain Resp Denies cough GI Denies abdominal pain and Denies hematochezia Physical Exam Vital Signs: BMI result Body Mass Index 35.9 Const Other: Obese General: comfortable and no acute distress Resp Effort & Inspection: normal respiratory effort GI Other: Abdomen protuberant, Ileostomy reversal site well healing, no signs of infect ion, efrain in place Palpation (GI): Soft to palpation, not firm, nontender and no guarding Assessment & Plan Assessment & Plan (1) Status post reversal of ileostomy: Code(s): Z98.890 - Other specified postprocedural states Category: Surgical Plan: He is doing very well. I removed all his skin efrain. The incision is healing well I advised him to avoid any lifting more than 20 lb for at least 4 more weeks. He can otherwise follow up with me on a p.r.n. basis. Coding Level of Care Code Global (95927) Diagnoses Status post reversal of ileostomy Z98.890
[2025-08-12 10:20] VITALS: BMI 35.9
== END 2025-08-12 10:41 | disposition home or self-care (01) ==
LOC: HO.HGS 10:13
PROVIDERS: Visit Provider Surgery
DX: Z98.890 Other specified postprocedural states (principal)
CPT/HCPCS: 99024

== ENCOUNTER → 2025-08-12 10:12 | Outpatient (BNVA) | payer OTHER, SELFPAY | PROVIDERS: Visit Provider Surgery | DX: Z48.815 Encounter for surgical aftercare following surgery on the digestive system (principal); Z98.890 Other specified postprocedural states | CPT/HCPCS: 99212 ==